=== PATIENT | male | born 1970 | race Caucasian/White ===

== ENCOUNTER 2016-05-13 17:08 | Emergency (ER) | payer MEDICAID ==
[2016-05-13 17:27] VITALS: BP 96/44; PULSE 58; RESP 15; TEMP 97.9; O2SAT 93
--- NOTE | 2016-05-13 18:16 | UCPHY ---
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 He is able to usually reduce this himself. No nausea or vomiting. Bowel movements normal. No urinary complaints. No direct trauma. No saddle injury. PHYSICAL EXAM (Prior to examination, patient consented to physical exam, hands were washed and my usual and customary physical exam procedures followed) 1) GENERAL: Well-developed, well-nourished, alert and oriented. Appears to be in no acute distress. 2) HEAD: Normocephalic 3) HEENT: sclera anicteric 4) LUNGS: Breathing comfortably. [5) : Circumcised male. bilateral testicles nontender with positive cremasteric reflex with no mass. A right inguinal mass consistent with an inguinal hernia is appreciated. I am able to easily reduce this area and instructed the patient how to do so as well (Yoli Birch) Constitutional: Initial Vital Signs Temperature (C) 36.6 C 05/13/16 17:23 Heart Rate 58 L 05/13/16 17:23 Respiratory Rate 15 05/13/16 17:23 Blood Pressure 96/44 L 05/13/16 17:23 O2 Sat (%) 93 05/13/16 17:23 O2 Delivery Mode Room Air Allergies/Adverse Reactions: erythromycin base [Erythromycin Base] Allergy (Intermediate, Verified 02/25/15 11:41) Sulfa (Sulfonamide Antibiotics) Allergy (Intermediate, Verified 02/25/15 11:41) ANESTHETICS Allergy (Uncoded 02/25/15 11:41) Home Medications: Medication Instructions Recorded Medical Marijuana 11/17/10 Lipitor 02/15/15 Plavix 02/15/15 Aspirin 81mg (OTC) 02/25/15 Ranexa 04/02/16 Hydrocodone/APAP 5/325 [[place] 1 tab PO Q6 PRN #15 tab 05/13/16 5/325 (RX)] MDM/Departure - MDM ED Course/Re-evaluation: I was able to easily reduce his right inguinal hernia and instructed the patient how to do so as well. Instructed him the importance of follow-up with General surgery in the importance of follow-up the emergency department immediately if he is unable to reduce this area himself or if he develops fever , chills, nausea, vomiting, worsening pain. He feels comfortable with this plan. Also instructed on wearing briefs and analgesia prescription provided. ( Yoli Birch) The patient was evaluated and managed by the Physician Outsewer/ Nurse Practitioner. I discussed the patient's presentation and course with the midlevel provider with them and agree with the evaluation. My co-signature indicates that I have reviewed this chart and I agree with the findings and plan of care as documented. I am the secondary supervising physician. (Patt Velarde) - Depart Disposition: Home, Routine, Self-Care Clinical Impression: Right inguinal hernia Condition: Good Instructions: Inguinal Hernia (ED) Additional Instructions: If you are unable to push the hernia back in go to the emergency department immediately. Stand Alone Forms: Work Limited Duty Prescriptions: Hydrocodone/APAP 5/325 [[place] 5/325 (RX)] 1 tab PO Q6 PRN #15 tab PRN Reason: Pain, Severe Referrals: Mitch Marie MD [Primary Care Provider] - 1-2 days without fail Jennifer Chakraborty MD [Medical Doctor] - 1-2 days without fail (Dr. Jennifer Chakraborty is a general surgeon) - PQRS PQRS Measurement: n/a (Yoli Birch)
== END 2016-05-13 18:24 | disposition home or self-care (01) ==
LOC: CED 17:08
DX: K40.90 Unilateral inguinal hernia, without obstruction or gangrene, not specified as recurrent (principal)
CPT/HCPCS: 99214-PO; G0463-PO

== ENCOUNTER 2017-05-20 11:30 | Inpatient (IN) | payer MEDICAID ==
[2017-05-20] MEDS ORDERED: IPRATROPIUM/ALBUTEROL 3 ML DEYVIAL IH ONE (11:40)
[2017-05-20] MEDS ORDERED: ASPIRIN 81 MG CHEWABLE TAB PO ONE (11:48)
[2017-05-20] MEDS ORDERED: NS 500 ML IV ONE ×2 (11:48→12:36)
--- NOTE | 2017-05-20 12:05 | CPEKG ---
Heart Rate: 62 RR Interval: 968 P-R Interval: 140 QRSD Interval: 82 QT Interval: 428 QTC Interval: 435 P [place]: -20 QRS [place]: 104 T Wave [place]: 63 EKG Severity - ABNORMAL ECG - EKG Impression: SINUS RHYTHM EKG Impression: ANTERIOR INFARCT, AGE INDETERMINATE Electronically Signed By: Nicole Alvarenga 20-May-2017 12:38:18
--- NOTE | 2017-05-20 12:07 | EDPHY ---
H & P Time Seen by Provider: 05/20/17 11:39 HPI/ROS: HPI Chest tightness, cough, congestion. 47-year-old male by private vehicle. He has a history of coronary artery disease. History of [place] with 1 stent placed. Noncompliant with his medications. He reports that he has had a cough productive of a clear to whitish sputum for the last 1-2 weeks with associated nasal and upper airway congestion. He reports that for the last 3 days he has had tightness left lower chest radiating around to the left thorax. Describes this as a tight, burning sensation that is sometimes sharp and intermittent in intensity but more constant at a low level. He took a nitroglycerin today. He did not have any relief. This is what prompted him to come to the emergency department for evaluation. ROS: Constitutional: No fever, no chills. No weakness. Eyes: No discharge. No changes in vision. ENT: No sore throat. As above. Respiratory: As above. Cardiac: As above, no palpitations. Gastrointestinal: No abdominal pain, no vomiting, no diarrhea. Genitourinary: No hematuria. No dysuria or increased frequency with urination. Musculoskeletal: No back pain. No neck pain. No myalgias or arthralgias. Skin: No rashes. Neurological: No headache. No focal weakness or altered sensation. Past medical history: Coronary artery disease. He does not know the name of his structural engineer. He has not seen his structural engineer in some time. He is currently not taking any prescription medications except for a albuterol inhaler which he uses sporadically. He also has a history of inguinal hernias as well as schizophrenia, bipolar and antisocial personality disorder. Social history: Smokes both cigarettes and marijuana. Here with a friend. Denies alcohol. Physical Exam: General Appearance: Alert, no distress. He is thin in appearance. This patient is responding to questions appropriately and in full sentences. Generally well hydrated. Eyes: Pupils equal and round no pallor or injection. No lid edema, erythema or injection. ENT, Mouth: Mucous membranes are moist. The pharyngeal tissues are unremarkable. No edema or swelling. No asymmetry suggestive of abscess. No erythema or exudates. Respiratory: There are no retractions, lungs are clear to auscultation except for some scant wheezing midlung vann with good air movement bilaterally. No tachypnea. Cardiovascular: Regular rate and rhythm. No murmur appreciated. Gastrointestinal: Abdomen is soft and nontender, no masses, bowel sounds normal. No focal tenderness at McBurney's point. No Lin sign. Neurological: Motor sensory function is grossly intact. Cranial nerves are normal. Gait is normal. Skin: Warm and dry, no rashes. Musculoskeletal: Neck is supple and nontender. Extremities are symmetrical. All joints range without pain or impingement. Psychiatric: No agitation. No depression. Database: EKG: EKG time is 12:02 p.m.; EKG shows a narrow complex normal sinus rhythm with a ventricular rate of 62. The OK, QRS, QT intervals are within normal limits. QS waves are noted in the anterior precordial leads. Biphasic T-waves in V4 and V5. No evidence of right heart strain. Interpreted by me. This EKG was compared to a prior study from March of 2016. Biphasic T-wave inversions in V4 and V5 not present on that study. Imaging: Chest x-ray PA and lateral; the cardiac mediastinal silhouette is unremarkable. COPD changes. No evidence of infiltrate or pneumothorax. No acute cardiopulmonary disease process noted. Interpreted by me. Procedures: Emergency department course: IV placed. He was placed on a monitor. His vital signs were reviewed. He was given 324 mg of chewed aspirin. He will be given a 1 time trial of L2 ureteral/ Atrovent. EKG obtained and reviewed by myself. 12:30 p.m., patient re-evaluated. States that his breathing is a bit easier after albuterol/Atrovent. Repeat pulmonary exam is unchanged from above. Describes having low level underlying chest discomfort on the left side. Describes discomfort as a pressure sensation. 1:15 p.m., patient resting comfortably. Still reports having a low level of left-sided chest discomfort. Blood pressure is been in the 90s over 50s. Blood work and results of chest x-ray and EKG reviewed with the patient. His ex - who was formally with him in the room is no longer present. I discussed admission for further evaluation to the hospital. He consents. Hospitalist paged. 1:25 p.m., spoke with hospitalist. Patient accepted for admission to telemetry observation under the care of Dr. Guthrie. Patient will be transferred by ambulance. His remaining emergency department course under my care has been uneventful. He was transferred in stable condition. Differential Diagnosis: The differential diagnosis on this patient includes but is not limited to bronchitis, influenza, pulmonary embolism, acute coronary syndrome. This represents a partial list of diagnoses considered. These considerations are based on history, physical exam, past history, reassessment and diagnostic testing. Smoking Status: Heavy smoker Constitutional: Initial Vital Signs Temperature (C) 36.9 C 05/20/17 11:39 Heart Rate 61 05/20/17 11:39 Respiratory Rate 18 05/20/17 11:39 Blood Pressure 112/61 05/20/17 11:39 O2 Sat (%) 96 05/20/17 11:39 O2 Delivery Mode Room Air O2 (L/minute) 2 Allergies/Adverse Reactions: erythromycin base [Erythromycin Base] Allergy (Intermediate, Verified 05/20/17 11:45) Sulfa (Sulfonamide Antibiotics) Allergy (Intermediate, Verified 05/20/17 11:45) ANESTHETICS Allergy (Uncoded 05/20/17 11:45) Home Medications: Medication Instructions Recorded Medical Marijuana 11/17/10 Lipitor 02/15/15 Plavix 02/15/15 Aspirin 81mg (OTC) 02/25/15 Ranexa 04/02/16 Hydrocodone/APAP 5/325 [[place] 1 tab PO Q6 PRN #15 tab 05/13/16 5/325 (RX)] Medical Decision Making - Diagnostics Imaging Results: Imaging Impressions Chest X-Ray 05/20/17 11:40 Impression: Lung hyperinflation, with no focal infiltrate. - Data Points Laboratory Results: Laboratory Results 05/20/17 12:30 05/20/17 12:30 05/20/17 05/20/17 05/20/17 12:30 12:30 12:30 WBC 7.74 10^3/uL 10^3/uL (3.80-9.50) RBC 4.89 10^6/uL 10^6/uL (4.40-6.38) Hgb 15.7 g/dL g/dL (13.7-17.5) Hct 44.2 % % (40.0-51.0) MCV 90.4 fL fL (81.5-99.8) MCH 32.1 pg pg (27.9-34.1) MCHC 35.5 g/dL g/dL (32.4-36.7) RDW 12.6 % % (11.5-15.2) Plt Count 283 10^3/uL 10^3/uL (150-400) MPV 8.8 fL fL (8.7-11.7) Neut % (Auto) 69.9 % % (39.3-74.2) Lymph % (Auto) 20.7 % % (15.0-45.0) Irion % (Auto) 6.6 % % (4.5-13.0) Eos % (Auto) 1.7 % % (0.6-7.6) Baso % (Auto) 0.8 % % (0.3-1.7) Nucleat RBC Rel Count 0.0 % % (0.0-0.2) Absolute Neuts (auto) 5.42 10^3/uL 10^3/uL (1.70-6.50) Absolute Lymphs (auto) 1.60 10^3/uL 10^3/uL (1.00-3.00) Absolute Monos (auto) 0.51 10^3/uL 10^3/uL (0.30-0.80) Absolute Eos (auto) 0.13 10^3/uL 10^3/uL (0.03-0.40) Absolute Basos (auto) 0.06 10^3/uL 10^3/uL (0.02-0.10) Absolute Nucleated RBC 0.00 10^3/uL 10^3/uL (0-0.01) Immature Gran % 0.3 % % (0.0-1.1) Immature Gran # 0.02 10^3/uL 10^3/uL (0.00-0.10) PT 13.1 SEC SEC (12.0-15.0) INR 1.00 (0.83-1.16) APTT 40.4 SEC H SEC (23.0-38.0) D-Dimer < 0.27 ug/mLFEU ug/mLFEU (0.00-0.50) Sodium 143 mEq/L mEq/L (134-144) Potassium 3.7 mEq/L mEq/L (3.5-5.2) Chloride 101 mEq/L mEq/L (97-110) Carbon Dioxide 20 mEq/l L mEq/l (22-31) Anion Gap 22 mEq/L H mEq/L (8-16) BUN 7 mg/dL mg/dL (7-23) Creatinine 0.8 mg/dL mg/dL (0.7-1.3) Estimated GFR > 60 Glucose 100 mg/dL mg/dL (70-100) Calcium 9.7 mg/dL mg/dL (8.5-10.4) Creatine Kinase 76 IU/L IU/L (0-224) CK-MB (CK-2) Fraction 0.88 ng/mL ng/mL (0.00-4.55) Troponin I < 0.012 ng/mL ng/mL (0.000-0.034) NT-Pro-B Natriuret Pep 320 pg/mL H pg/mL (0-125) Medications Given: Discontinued Medications Albuterol/Ipratropium (Duoneb) 6 ml IH EDNOW ONE Stop: 05/20/17 11:41 Last Admin: 05/20/17 12:06 Dose: 6 ml Aspirin (Aspirin) 324 mg PO EDNOW ONE Stop: 05/20/17 11:49 Last Admin: 05/20/17 12:03 Dose: 324 mg Sodium Chloride (Ns) 500 mls @ 0 mls/hr IV EDNOW ONE; Wide Open PRN Reason: Protocol Stop: 05/20/17 12:37 Last Admin: 05/20/17 12:38 Dose: 500 mls Departure - Departure Disposition: [facility] ([place], [place]) Inpatient Acute Clinical Impression: Chest pain, Acute bronchitis Referrals: [facility],. [Primary Care Provider] - As per Instructions
[2017-05-20 12:41] LABS: PLATELET COUNT 283 10^3/uL (150-400)
[2017-05-20 12:51] LABS: PROTIME(PATIENT) 13.1 SEC (12.0-15.0)
[2017-05-20 13:01] LABS: CREATINE KINASE 76 IU/L (0-224)
[2017-05-20] MEDS ORDERED: ACETAMINOPHEN 325 MG TAB PO PRN (16:42)
[2017-05-20] MEDS ORDERED: ONDANSETRON 4 MG/2 ML VIAL IVP PRN (16:42)
[2017-05-20] MEDS ORDERED: ONDANSETRON DISINTEGRATING 4 MG TAB PO PRN (16:42)
--- NOTE | 2017-05-20 17:17 | GHP ---
[f rep st] HISTORY AND PHYSICAL DATE OF ADMISSION: 05/20/2017 CHIEF COMPLAINT: Chest pain. HISTORY OF PRESENT ILLNESS: This is a 47-year-old male with a previous history of acute NM, status p ost stent done at [facility] several years ago. He did follow up with Cardiology last summer. Taylor de anda does not remember when his last stress test was. He has been having upper respiratory tract infection for some time. A couple days ago, he started [employer] [id number] cold medicine. The next day he woke up and he had chest pressure that continue d throughout the day. He did not feel well overall. No dyspnea, diaphoresis. Pain is mostly gone n ow. It is slightly pleuritic. REVIEW OF SYSTEMS: A 10-point review of systems was obtained and negative. PAST MEDICAL HISTORY: 1. Coronary artery disease, status post stenting. 2. Bipolar. SOCIAL HISTORY: He had quit smoking but now is smoking. He has been smoking about 6 months. He sta rajiv that he is not eating well overall. He used to do methamphetamine until 2008 and had a very bad experience and has not touched it since. FAMILY HISTORY: No history of heart disease. PHYSICAL EXAM: VITAL SIGNS: Afebrile, blood pressure is 96/58, heart rate 50, oxygen saturation 99% on 2 L. GENERAL: The patient is well developed, no apparent distress. HEENT: Nonicteric sclerae. Extraocular movements intact. Moist mucous membranes. NECK: Supple. No thyromegaly. LUNGS: Go od effort. Clear to auscultation bilaterally. CARDIOVASCULAR: Regular rate and rhythm. No murmurs or gallops. ABDOMEN: Positive bowel sounds. Soft, nontender, nondistended. No hepatosplenomegaly . EXTREMITIES: No clubbing, cyanosis, or edema. SKIN: Without rash. Dry, intact. NEUROLOGIC: A lert and oriented x3. Moving all 4 extremities equally. PSYCH: Normal mood and affect. LABS: CBC is normal. Coags showed a negative D-dimer. Troponin is negative. Flu is negative. EKG personally reviewed and interpreted. Shows Q-waves anteriorly. Some ST-segment elevation in V3 and V4 but looks like possibly repolarization. Chest x-ray personally reviewed and interpreted, negativ e. ASSESSMENT: This is a 47-year-old male with a previous history of coronary artery disease presenting with chest pain. PLAN: 1. Chest pain. Rule out ACS. We will cycle troponins. He has not had a stress test in a while. W e will get a treadmill nuclear medicine test in the morning. Continue aspirin. 2. Bipolar. /[id number]/MODL
[2017-05-20] MEDS: OLANZapine 5 MG TAB PO SCH (20:53)
--- NOTE | 2017-05-21 01:41 | CPEKG ---
Heart Rate: 47 RR Interval: 1277 P-R Interval: 154 QRSD Interval: 80 QT Interval: 516 QTC Interval: 457 P [place]: 55 QRS [place]: 87 T Wave [place]: 57 EKG Severity - ABNORMAL ECG - EKG Impression: SINUS BRADYCARDIA EKG Impression: ANTERIOR INFARCT, AGE INDETERMINATE Electronically Signed By: Nishnat Matt 21-May-2017 06:41:36
[2017-05-21] MEDS: ASPIRIN EC 81 MG TAB PO SCH (08:02)
--- NOTE | 2017-05-21 13:17 | HOSPPROG ---
Hospitalist Progress Note Assessment/Plan: 47 yo M w known CAD here w CP, anterolateral wkg changes and markedly abnormal resting nuclear images. cad: cath today trop neg suggesting event about a week ago h/o lower extremity "clots": has been told hes had clots but never anticoagulated check b/l ultrasound tobacco use: rec cessation dispo: change to inpatient Subjective: ekg w anterolat twi w ST changes (interp by me). case d/w selwyn ramos, cardiology PA Objective: Vital Signs Temp Pulse Resp BP Pulse Ox 36.8 C 50 L 17 95/56 L 95 05/21/17 12:00 05/21/17 12:00 05/21/17 12:00 05/21/17 12:00 05/21/17 12:00 05/20/17 05/21/17 05/22/17 05:59 05:59 05:59 Intake Total 620 Balance 620 PT 13.1 SEC (12.0-15.0) 05/20/17 12:30 INR 1.00 (0.83-1.16) 05/20/17 12:30 - Physical Exam Constitutional: no apparent distress, appears nourished Eyes: PERRL, anicteric sclera Ears, Nose, Mouth, Throat: moist mucous membranes, hearing normal Cardiovascular: regular rate and rhythym, no murmur, rub, or gallop Respiratory: no respiratory distress, no rales or rhonchi Gastrointestinal: normoactive bowel sounds, soft, non-tender abdomen Genitourinary: no bladder fullness, No huitron in urethra Skin: warm, normal color Musculoskeletal: full muscle strength, no muscle tenderness Neurologic: AAOx3, sensation intact bilaterally Psychiatric: interacting appropriately, not anxious Lymph, Heme, Immunologic: no cervical LAD, no supraclavicular LAD ICD10 Worksheet Patient Problems: Problems Problem Status Onset Acute bronchitis Acute Chest pain Acute
[2017-05-21] MEDS ORDERED: DIAZEPAM 5 MG TAB PO ONE (14:16)
[2017-05-21] MEDS ORDERED: FAMOTIDINE 20 MG TAB PO ONE (14:16)
[2017-05-21] MEDS ORDERED: ASPIRIN EC 325 MG TAB PO ONE (14:16)
[2017-05-21] MEDS ORDERED: TEMAZEPAM 15 MG CAP PO PRN (14:16)
[2017-05-21] MEDS ORDERED: diphenhydrAMINE 25 MG CAP PO ONE (14:16)
[2017-05-21] MEDS ORDERED: NITROGLYCERIN 0.4 MG BTL SL PRN (14:16)
[2017-05-21] MEDS ORDERED: NS 1,000 ML IV SCH (14:30)
[2017-05-21] MEDS ORDERED: IOPAMIDOL (ISOVUE-370) 150 ML BTL IV ONE (14:51)
[2017-05-21] MEDS ORDERED: LIDOCAINE 1% 300 MG/30 ML SDV ONE (14:51)
[2017-05-21] MEDS ORDERED: MIDAZOLAM 2 MG/2 ML VIAL ONE (14:51)
[2017-05-21] MEDS ORDERED: fentaNYL 100 MCG/2 ML INJ ONE (14:51)
--- NOTE | 2017-05-21 15:01 | GCON ---
[f rep st] CONSULTATION CARDIOLOGY CONSULTATION DATE OF CONSULTATION: 05/21/2017 REASON FOR CONSULTATION: We were asked by Dr. Clarence Ramos of [facility] to evaluate this p atient for his episode of chest discomfort and abnormal ECG. HISTORY OF PRESENT ILLNESS: The patient is a 47-year-old male with a history of previous NE on 2015. He reports he was seen at [facility] and treated with percutaneous intervent ion to his left anterior descending; we do not have records to confirm this. He reports a midsternal chest discomfort described as a tightness that precipitated current admission. He had noted an epis ode 2 days prior to admission while he was walking his ex- to work. He did take a nitroglycerin which alleviated his discomfort. Yesterday, he had ongoing discomfort and presented for further eval uation. He reports symptoms were alleviated by a breathing treatment. He reports he has had a respi ratory infection for the past few weeks, described as mostly coughing. He denies any PND, orthopnea, palpitations, presyncope, syncope, or any recent GI illness. REVIEW OF SYSTEMS: As per HPI. A complete 10-point review of systems was obtained and is negative e xcept for what is dictated. PAST MEDICAL HISTORY: 1. CAD, status post NE with PTCA and stenting 12/12/2015. 2. Bipolar disorder. 3. Tobacco abuse, having recently resumed smoking. 4. 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 SOCIAL HISTORY: Patient is a current tobacco user. He also reports smoking marijuana. No alcohol u se is noted in his chart. FAMILY HISTORY: Negative for coronary disease. OUTPATIENT MEDICATIONS: Listed as aspirin and Zyprexa. ALLERGIES: Sulfonamides, anesthetics, and erythromycin. PHYSICAL EXAMINATION: VITAL SIGNS: BP of 95/56, heart rate of 50, respirations 17, O2 saturation 95 % in room air, and a temp of 98.3 degrees Fahrenheit. GENERAL: He is a pleasant male in no apparent distress. HEENT: Normocephalic atraumatic. Eyes are without scleral icterus. Mouth with poor den tition. NECK: Supple with no JVD. No carotid bruits. HEART: Regular rate and rhythm with a 2/6 s ystolic ejection murmur. LUNGS: Rhonchorous without rales present. ABDOMEN: Soft with normoactive bowel sounds. : No Weber present in urethra. SKIN: Warm and dry without clubbing, cyanosis, or edema. DIAGNOSTICS: A 05/20/2017 chest x-ray shows lung hyperventilation without infiltrate. A 05/20/2017 12-lead ECG, personally interpreted, demonstrates sinus rhythm with an ectopic atrial rhythm also pre sent. There are anterior Q-waves. There are biphasic T-waves in V4 and T-wave inversion in V5. 02/2018 EKG (today) demonstrates sinus rhythm with worsening biphasic T-waves and T-wave inversions t hroughout the anterolateral leads. Ectopic atrial rhythm is also present. A 05/21/2017 resting nucl ear medicine scan shows defects involving the apical, anteroapical, and septal kwong. I discussed th is case with Dr. Clarence Ramos. IMPRESSION AND PLAN: The patient is a 47-year-old male who presents with chest pain. 1. New onset chest pain and very abnormal EKG suggestive of recent myocardial infarction. Options w ere reviewed with him today, and he is advised to consider cardiac catheterization for further evalua tion. He is agreeable to this. Risks, benefits, and alternatives reviewed with him today. 2. Tobacco abuse. Patient counseled on cessation. 3. Dyslipidemia. He reports he has been off statin as his previous hand edger canceled his prescr iption. We will recheck his lipids now and likely he may be put back on statin therapy. More recommendations to follow further results of cardiac catheterization. /[id number]/MODL
--- NOTE | 2017-05-21 15:10 | PDMN ---
Medical Necessity Medical necessity: abnormal EKG, ab. resting nuclear images. cont monitoring and eval > 2 midnights
--- NOTE | 2017-05-21 15:17 | ASMTCASEMG ---
Living Arrangements What is your living Answers: With Spouse arrangement? Who do you live with? Type Of Residence What kind of residence do Answers: House you live in? Discharge Plan Comments Coordination Status Comments Notes: Pt is a 47 y/o man admitted for chest pain and hx of coronary artery disease. Pt will most likely not have any needs at time of d/c. No therapies ordered at this time. CM available for d/c needs. Plan: Independent Date Signed: 05/21/2017 03:16 PM Electronically Signed By:TAE Hernández
--- NOTE | 2017-05-21 15:25 | PDHPUP ---
History & Physical Update H&P update statement: This history and physical update is based on an assessment of the patient which was completed after admission or registration (within 24 hours), but prior to the surgery/procedure. H&P update: H&P reviewed & patient examined, no change in patient's condition since H&P completed
--- NOTE | 2017-05-21 15:25 | PDPROPOC ---
Sedation Plan of Care Sedation Plan of Care: vital signs stable, mental status noted, patient educated of risks, benefits, alternatives, patient can tolerate sedation ASA Classification: ASA 2 Planned drugs: fentanyl, midazolam Mallampati Score: Class 1 Mallampati Reference Image: Patient passed 3-3-2 rule?: Yes
--- NOTE | 2017-05-21 16:18 | PDDXCAT ---
Diagnostic Cath Note - . Date: 05/21/17 Traffic Incident Management Manager: Joslyn High-risk criteria on non-invasive testing: stress-induced moderate-size multiple perfusion defects - Procedure Access: right groin Procedure: left heart catheterization, coronary angiography, left ventriculogram - Materials Left Heart Cath size: 6F Left Heart Cath materials: standard multipack (JL4, JR4, pigtail) - Findings-Left Heart Catheterization LM: Short, bifurcating into the LAD and LCX vessels. Vast majority of the diameter of the LM transfers into the LAD. No luminal irregularities were noted. LAD: Large vessel with widely patent LAD stent. One principal diagonal. Mild luminal irregularities to the bifurcation of the LAD/Diag. LCX: Non dominant, small vessel with one principal diagonal. No appreciable luminal irregularities were noted. RCA: Medium diameter vessel without luminal irregularities noted. PDA and CELSA are supplied by this vessel (dominant). EDP: 14 mm Hg LVEF: 50% Wall motion: anteroapical hypokinesis was noted Complications: none Estimated blood loss: <50ml Closure method: manual pressure Assessment: 47 y/o male with history of PCI to the LAD and complaints of chest pains as well as an abnormal MPI test. No cardiac enzyme elevation was noted. No sigificant CAD was noted. LAD stent was widely patent. Plan: Aggressive medical management Strong recommendations for smoking cessation Alcohol cessation Intervention: none Patient Problems: Problems Problem Status Onset Acute bronchitis Acute Chest pain Acute
[2017-05-21] MEDS ORDERED: ATROPINE SULFATE 1 MG/10 ML SYR ONE (16:26)
--- NOTE | 2017-05-21 16:36 | ECHO ---
[email or web address] [place] [id number] Main: [phone] Fax: Transthoracic Echocardiogram Name: MITCH MOREL MR#: [id number] Study Date: 05/21/2017 Study Time: 11:49 AM Date of : 1970 Age: 47 year(s) Height: 165.1 cm (65 in.) Weight: 54.43 kg (120 lb.) BSA: 1.59 m2 Gender: Male Examination: Echo Indication: Abnormal EKG/R/O WMA Image Quality: Contrast: Requested by: Manisha Lomax BP: 92 mmHg/50 mmHg Heart Rate: Rhythm: Indication: Abnormal EKG/R/O WMA Procedure Staff Yeast Cake Cutter: Leann Lamar Reading Physician: Schuyler Jorgensen Requesting Provider: Conclusions: Normal size left ventricle. No LV hypertrophy. The ejection fraction is estimated to be 45-50 %. LV mid inferoseptal and entire apical region is akinetic.. Mild mitral valve regurgitation is present. The aortic valve is normal in appearance and function. Trivial to mild tricuspid valve regurgitation. Pulmonary valve not well visualized. Measurements: Chambers Valvular Assessment AV/MV Valvular Assessment TV/PV Normal Normal Normal Name Value Range Name Value Range Name Value Range EF Range: 45-50 % Continued Measurements: Findings: Left Ventricle: Normal size left ventricle. No LV hypertrophy. The ejection fraction is estimated to be 45-50 %. LV mid inferoseptal and entire apical region is akinetic.. Right Ventricle: Normal size right ventricle. Left Atrium: The left atrium is normal in size. Right Atrium: The right atrium is normal in size. Mitral Valve: Patient: MITCH MOREL Study Date: 05/21/2017 Page 1 of 2 11:49 AM The mitral valve is normal in appearance and function. Mild mitral valve regurgitation is present. Aortic Valve: The aortic valve is normal in appearance and function. Tricuspid Valve: The tricuspid valve is normal in appearance and function. Trivial to mild tricuspid valve regurgitation. Pulmonic Valve: Pulmonary valve not well visualized. Aorta: The aorta is normal. Pericardium: Trivial anterior pericardial effusion. (No Signature Object) Patient: MITCH MOREL Study Date: 05/21/2017 Page 2 of 2 11:49 AM [id number]
[2017-05-21] MEDS: OLANZapine 5 MG TAB PO SCH (22:32)
[2017-05-21 23:44] VITALS: RESP 16
[2017-05-22 04:10] VITALS: O2SAT 96
[2017-05-22 08:02] VITALS: BP 106/57; PULSE 56; TEMP 98.3
[2017-05-22] MEDS: ASPIRIN EC 81 MG TAB PO SCH (08:46)
--- NOTE | 2017-05-22 09:11 | HOSPPROG ---
Hospitalist Progress Note Assessment/Plan: 47 yo M w known CAD here w CP, anterolateral wkg changes and markedly abnormal resting nuclear images. cad: cath unremarkable add statin h/o lower extremity "clots": has been told hes had clots but never anticoagulated neg b/l ultrasound tobacco use: rec cessation dispo: home today > 30 minutes see dc summary Subjective: cath w patent stent, non flow limiting CAD elsewhere Objective: Vital Signs Temp Pulse Resp BP Pulse Ox 36.8 C 56 L 16 106/57 L 96 05/22/17 08:00 05/22/17 08:00 05/22/17 08:00 05/22/17 08:00 05/22/17 08:00 05/21/17 05/22/17 05/23/17 05:59 05:59 05:59 Intake Total 1400 Output Total 700 Balance 700 PT 13.1 SEC (12.0-15.0) 05/20/17 12:30 INR 1.00 (0.83-1.16) 05/20/17 12:30 - Physical Exam Constitutional: no apparent distress, appears nourished, not in pain Eyes: PERRL, anicteric sclera Ears, Nose, Mouth, Throat: hearing normal, poor dentition, other Cardiovascular: regular rate and rhythym, no murmur, rub, or gallop, No systolic murmur Respiratory: no respiratory distress, no rales or rhonchi Gastrointestinal: normoactive bowel sounds, soft, non-tender abdomen Genitourinary: no bladder fullness, No huitron in urethra Skin: warm, normal color Musculoskeletal: full muscle strength, no muscle tenderness Neurologic: AAOx3 Psychiatric: interacting appropriately ICD10 Worksheet Patient Problems: Problems Problem Status Onset Acute bronchitis Acute Chest pain Acute
--- NOTE | 2017-05-22 11:18 | GHP ---
[f rep st] HISTORY AND PHYSICAL DATE OF ADMISSION: 05/21/2017 DICTATION ENDS. CANCEL. /[id number]/MODL
--- NOTE | 2017-05-22 14:36 | ASDISCHSUM ---
Discharge Information Plan Status:Home with No Needs Medically Cleared to Leave:05/21/2017 Discharge Date:05/22/2017 01:55 PM CM D/C Disposition: ADT D/C Disposition:Home, Routine, Self-Care Projected Discharge Date:05/22/2017 12:00 AM Transportation at D/C: Discharge Delay Reason: Follow-Up Date:05/22/2017 12:00 AM Discharge Slot: Final Diagnosis: Placement Information Patient Contact Information Contact Name:CLAUDIA Relationship: Address: Work Phone: City: [facility] Phone: State/[employer] Code: Email: Financial Information Financial Class:Self-Pay Primary Plan Desc:SELF PAY Primary Plan Number: Secondary Plan Desc: Secondary Plan Number: Assessment Information [facility] Initial CM Assessment Living Arrangements What is your living Answers: With Spouse arrangement? Who do you live with? Type Of Residence What kind of residence do Answers: House you live in? Discharge Plan Comments Coordination Status Comments Notes: Pt is a 47 y/o man admitted for chest pain and hx of coronary artery disease. Pt will most likely not have any needs at time of d/c. No therapies ordered at this time. CM available for d/c needs. Plan: Independent Date Signed: 05/21/2017 03:16 PM Electronically Signed By:TAE Hernández Case Management Discharge Plan Note Case Management Discharge Discharge Order Complete? Answers: Yes Patient to Obtain Answers: Independently Medications Transportation Arranged Answers: Family/Friends EMTALA Complete Answers: No Case Management Transport Answers: No Form Complete Faxed Final Orders Answers: No Agency/Facility Transfer Answers: No Report Printed & Faxed to Receiving Agency Family Notified Answers: No Discharge Comments Notes: Pt is being discharged today. Pt reports that his is coming to pick him up. CM spoke to pt about his psycho-social stressors and ETOH use. CM provided a list of AA meetings, rooms for rent and ETOH relapse prevention programs. Pt will d/c without any needs. CM available for changes. Plan: Independent Date Signed: 05/22/2017 10:28 AM Electronically Signed By:TAE Hernández Intervention Information
--- NOTE | 2017-05-22 20:46 | GDS ---
[f rep st] DISCHARGE SUMMARY DISCHARGE DIAGNOSES: 1. Coronary artery disease with known left anterior descending artery stent. 2. False-positive nuclear perfusion test. HOSPITAL COURSE: Please see admission history and physical by Dr. Roni Guthrie. The patient presented with chest pain. He had abnormal EKG with anterolateral biphasic T-waves. He had some rest images of nuclear perfusion that showed defects involving the anterior, apical and septal kwong. He had neg ative troponins. He underwent cardiac catheterization, which showed a patent stent and relatively un remarkable coronary artery disease. He was re-initiated on statin. He does take an aspirin. The st ent was more than a year ago, so he does not take Plavix. /[id number]/MODL
== END 2017-05-22 13:55 | disposition home or self-care (01) | DRG 287 ==
LOC: CED 11:30 → CEDHOLD 13:23 → F2W 15:24 → OBSVTOIN 05-21 13:22
PROVIDERS: ADMIT Internal Medicine; ATTEND Internal Medicine
DX: I25.10 Atherosclerotic heart disease of native coronary artery without angina pectoris (principal); F12.90 Cannabis use, unspecified, uncomplicated; I25.2 Old myocardial infarction; F31.9 Bipolar disorder, unspecified; E78.5 Hyperlipidemia, unspecified; Z72.0 Tobacco use; Z95.5 Presence of coronary angioplasty implant and graft
CPT/HCPCS: 71046-PO; 80048-PO; 82550-PO; 82553-PO; 83880-PO; 84484-PO; 85025-PO; 85378-PO; 85610-PO; 85730-PO; 87400-PO; A9500; G0378; J0461; J1644; J2250; J3010; Q9967

== ENCOUNTER 2017-09-07 12:10 | Emergency (ER) | payer MEDICAID ==
[2017-09-07] MEDS ORDERED: NS 1,000 ML IV ONE ×2 (12:30→12:57)
--- NOTE | 2017-09-07 12:38 | EDPHY ---
H & P Time Seen by Provider: 09/07/17 12:12 HPI/ROS: 47-year-old male with a history of cannabis abuse and alcohol abuse presents complaining of vomiting and diarrhea For the last 3 days. No fevers or chills. He states he ate a hamburger yesterday, followed by "urping". Patient admits he may have had a large bottle of wine as well as a "[employer] reserve". He also did several bowls of weed yesterday and today. Review of systems As per HPI General no fever no chills no weakness HEENT no eye pain no eye discharge. No eye redness, no sore throat Respiratory no cough, no shortness of breath Cardiac no chest pain, no peripheral edema GI pos abdominal cramping, positive nausea positive vomiting positive diarrhea no constipation no flank pain, no hematuria, no dysuria Musculoskeletal no myalgias, no joint pain Heme no easy bruising, no easy bleeding Endo no polyuria, no polydipsia Skin no rashes, no pruritus Neuro no syncope, no dizziness, no headaches Psych is no suicidal ideation, no homicidal ideation Past Medical/Surgical History: Coronary artery disease, with 1 stent Hyperlipidemia COPD/asthma Alcohol abuse Cannabis abuse Social History: Uses cannabis and alcohol on a regular basis Smoking Status: Heavy smoker Physical Exam: 47-year-old male alert and oriented no acute distress nontoxic appearance, afebrile Thin, Atraumatic normocephalic Extraocular muscles intact, anicteric 0 P poor dentition, dry mucosa, no erythema no exudate Neck supple no JVD , no meningismus Lungs clear to auscultation bilaterally, no respiratory distress Heart regular rate and rhythm without murmur rub or gallop Abdomen nondistended bowel sounds present soft nontender no guarding no rebound , no pulsatile mass Extremities no cyanosis clubbing or edema Neuro alert and oriented no focal deficits Gait intact Constitutional: Initial Vital Signs Temperature (C) 36.9 C 09/07/17 12:17 Heart Rate 86 09/07/17 12:17 Respiratory Rate 16 09/07/17 12:17 Blood Pressure 108/59 L 09/07/17 12:17 O2 Sat (%) 95 09/07/17 12:17 O2 Delivery Mode Room Air Allergies/Adverse Reactions: erythromycin base [Erythromycin Base] Allergy (Intermediate, Verified 09/07/17 12:28) Sulfa (Sulfonamide Antibiotics) Allergy (Intermediate, Verified 09/07/17 12:28) ANESTHETICS Allergy (Uncoded 09/07/17 12:28) Home Medications: Medication Instructions Recorded Aspirin EC [Aspirin EC 81 mg (*)] 81 mg PO DAILY 05/20/17 OLANZapine [Zyprexa] 5 mg PO HS 05/20/17 Atorvastatin Calcium 10 mg PO HS #30 tablet 05/22/17 Advair 250/50 (*) 09/07/17 Albuterol 09/07/17 Qvar 09/07/17 Medical Decision Making ED Course/Re-evaluation: Patient seen and evaluated for vomiting, diarrhea, crampy abdominal pain. IV established, IV fluids started as well as ondansetron 4 mg IV push Lab sent CBC within normal limits CMP within normal limits Lipase mildly elevated at 700 After IV fluids and Zofran patient feeling markedly better, tolerating dejan yohannes Impression Viral gastroenteritis Possibly alcoholic gastritis Cannot rule out a mild early pancreatitis Cannabinoid hyperemesis is also in the differential Plan Discharge home Follow up with primary care physician Advised clear liquids and gradually increasing diet as tolerated Return as needed Differential Diagnosis: Differential diagnosis considered but not limited to Gastroenteritis, alcoholic gastritis, hyperemesis syndrome secondary to cannabis , gastritis, pancreatitis, cholecystitis - Data Points Laboratory Results: Laboratory Results 09/07/17 12:35 09/07/17 12:35 09/07/17 09/07/17 09/07/17 12:35 12:35 12:35 WBC 7.04 10^3/uL 10^3/uL (3.80-9.50) RBC 4.70 10^6/uL 10^6/uL (4.40-6.38) Hgb 15.0 g/dL g/dL (13.7-17.5) Hct 43.2 % % (40.0-51.0) MCV 91.9 fL fL (81.5-99.8) MCH 31.9 pg pg (27.9-34.1) MCHC 34.7 g/dL g/dL (32.4-36.7) RDW 13.5 % % (11.5-15.2) Plt Count 235 10^3/uL 10^3/uL (150-400) MPV 9.0 fL fL (8.7-11.7) Neut % (Auto) 77.4 % H % (39.3-74.2) Lymph % (Auto) 15.3 % % (15.0-45.0) [place] % (Auto) 5.8 % % (4.5-13.0) Eos % (Auto) 1.0 % % (0.6-7.6) Baso % (Auto) 0.4 % % (0.3-1.7) Nucleat RBC Rel Count 0.0 % % (0.0-0.2) Absolute Neuts (auto) 5.44 10^3/uL 10^3/uL (1.70-6.50) Absolute Lymphs (auto) 1.08 10^3/uL 10^3/uL (1.00-3.00) Absolute Monos (auto) 0.41 10^3/uL 10^3/uL (0.30-0.80) Absolute Eos (auto) 0.07 10^3/uL 10^3/uL (0.03-0.40) Absolute Basos (auto) 0.03 10^3/uL 10^3/uL (0.02-0.10) Absolute Nucleated RBC 0.00 10^3/uL 10^3/uL (0-0.01) Immature Gran % 0.1 % % (0.0-1.1) Immature Gran # 0.01 10^3/uL 10^3/uL (0.00-0.10) Sodium 141 mEq/L mEq/L (135-145) Potassium 3.7 mEq/L mEq/L (3.5-5.2) Chloride 103 mEq/L mEq/L (97-110) Carbon Dioxide 25 mEq/l mEq/l (22-31) Anion Gap 13 mEq/L mEq/L (8-16) BUN 6 mg/dL L mg/dL (7-23) Creatinine 0.8 mg/dL mg/dL (0.7-1.3) Estimated GFR > 60 Glucose 122 mg/dL H mg/dL (70-100) Calcium 9.3 mg/dL mg/dL (8.5-10.4) Total Bilirubin 1.2 mg/dL mg/dL (0.1-1.4) Conjugated Bilirubin 0.3 mg/dL mg/dL (0.0-0.5) Unconjugated Bilirubin 0.9 mg/dL mg/dL (0.0-1.1) AST 25 IU/L IU/L (17-59) ALT 41 IU/L IU/L (21-72) Alkaline Phosphatase 107 IU/L IU/L (38-126) Troponin I < 0.012 ng/mL ng/mL (0.000-0.034) Total Protein 7.3 g/dL g/dL (6.3-8.2) Albumin 4.0 g/dL g/dL (3.5-5.0) Lipase 732 IU/L H IU/L (23-300) Medications Given: Discontinued Medications Sodium Chloride (Ns) 1,000 mls @ 0 mls/hr IV EDNOW ONE; Wide Open PRN Reason: Protocol Stop: 09/07/17 12:31 Last Admin: 09/07/17 12:44 Dose: 1,000 mls Sodium Chloride (Ns) 1,000 mls @ 0 mls/hr IV ONCE ONE PRN Reason: Wide Open Stop: 09/07/17 12:58 Last Admin: 09/07/17 13:33 Dose: 1,000 mls Ondansetron HCl (Zofran) 4 mg IVP EDNOW ONE Stop: 09/07/17 12:58 Last Admin: 09/07/17 13:33 Dose: 4 mg Departure - Departure Disposition: Home, Routine, Self-Care Clinical Impression: Gastritis, Diarrhea Condition: Good Instructions: Gastritis (ED), Acute Diarrhea (ED) Referrals: Mitch Marie MD [Primary Care Provider] - As per Instructions
[2017-09-07 12:40] LABS: PLATELET COUNT 235 10^3/uL (150-400)
--- NOTE | 2017-09-07 12:44 | CPEKG ---
Heart Rate: 63 RR Interval: 952 P-R Interval: 140 QRSD Interval: 80 QT Interval: 432 QTC Interval: 443 P [place]: 60 QRS [place]: 96 T Wave [place]: 68 EKG Severity - ABNORMAL ECG - EKG Impression: SINUS RHYTHM EKG Impression: LOW VOLTAGE IN FRONTAL LEADS EKG Impression: CONSIDER ANTEROSEPTAL INFARCT EKG Impression: BORDERLINE T ABNORMALITIES, LATERAL LEADS Electronically Signed By: Adonis Hughes 09-Sep-2017 09:38:50
[2017-09-07] MEDS ORDERED: ONDANSETRON 4 MG/2 ML VIAL IVP ONE (12:57)
[2017-09-07 15:01] VITALS: BP 93/50
== END 2017-09-07 15:15 | disposition home or self-care (01) ==
LOC: CED 12:10
DX: K29.70 Gastritis, unspecified, without bleeding (principal); E86.9 Volume depletion, unspecified; J44.9 Chronic obstructive pulmonary disease, unspecified; I25.10 Atherosclerotic heart disease of native coronary artery without angina pectoris; F17.200 Nicotine dependence, unspecified, uncomplicated; Z79.82 Long term (current) use of aspirin
CPT/HCPCS: 80048-PO; 80076-PO; 83690-PO; 84484-PO; 85025-PO; 96374; J2405

== ENCOUNTER 2017-09-09 16:04 | Inpatient (IN) | payer MEDICAID ==
[2017-09-09] MEDS ORDERED: KETOROLAC 30 MG/1 ML SDV IVP ONE (16:14)
[2017-09-09] MEDS ORDERED: ONDANSETRON 4 MG/2 ML VIAL IVP ONE ×2 (16:14→17:37)
[2017-09-09] MEDS ORDERED: NS 1,000 ML IV ONE (16:14)
--- NOTE | 2017-09-09 16:17 | EDPHY ---
H & P Stated Complaint: RLQ abdominal pain, vomiting x 4 days. Seen 09/07/17. Time Seen by Provider: 09/09/17 16:10 HPI/ROS: CHIEF COMPLAINT: Right lower quadrant pain HISTORY OF PRESENT ILLNESS: The patient is a 47-year-old man who comes to the emergency department complaining of right lower quadrant pain. He was seen here 3 days ago and at that time was primarily having vomiting. His workup was unremarkable except for a elevated lipase. He does drink heavily but states he has not drink in the last 4 days. He also smokes significant amount of marijuana. His symptoms improved with fluids and Zofran and she returned home. He states that over the last 2 days his vomiting has returned and is having no lower abdominal pain. No urinary symptoms. Mild diarrhea nonbloody. He states that he vomits whenever he tries to eat or drink anything. He has a history of bilateral inguinal surgery. REVIEW OF SYSTEMS: Constitutional: denies: chills, fever, recent illness, recent injury EENTM: denies: blurred vision, double vision, nose congestion Respiratory: denies: cough, shortness of breath Cardiac: denies: chest pain, irregular heart rate, lightheadedness, palpitations Gastrointestinal/Abdominal: See HPI Genitourinary: denies: dysuria, frequency, hematuria, pain Musculoskeletal: denies: joint pain, muscle pain Skin: denies: lesions, rash, jaundice, bruising Neurological: denies: headache, numbness, paresthesia, tingling, dizziness, weakness Hematologic/Lymphatic: denies: blood clots, easy bleeding, easy bruising Immunologic/allergic: denies: HIV/AIDS, transplant EXAM: GENERAL: Well-appearing, thin and in no acute distress. HEAD: Atraumatic, normocephalic. EYES: Pupils equal round and reactive to light, extraocular movements intact, sclera anicteric, conjunctiva are normal. ENT: TMs normal, nares patent, oropharynx clear without exudates. Moist mucous membranes. NECK: Normal range of motion, supple without lymphadenopathy or JVD. LUNGS: Breath sounds clear to auscultation bilaterally and equal. No wheezes rales or rhonchi. HEART: Regular rate and rhythm without murmurs, rubs or gallops. ABDOMEN: Soft, nontender, normoactive bowel sounds. No guarding, no rebound. No masses appreciated. BACK: No CVA tenderness, no spinal tenderness, step-offs or deformities EXTREMITIES: Normal range of motion, no pitting or edema. No clubbing or cyanosis. NEUROLOGICAL: Cranial nerves II through XII grossly intact. Normal speech, normal gait. 5/5 strength, normal movement in all extremities, normal sensation PSYCH: Normal mood, normal affect. SKIN: Warm, dry, normal turgor, no visible rashes or lesions. Source: Patient Exam Limitations: No limitations - Personal History Current Tetanus Diphtheria and Acellular Pertussis (TDAP): Yes Tetanus Vaccine Date: within 10 yrs - Medical/Surgical History Hx Asthma: Yes Hx Chronic Respiratory Disease: No Hx Diabetes: Yes Hx Cardiac Disease: Yes Hx Renal Disease: No Hx Cirrhosis: No Hx Alcoholism: Yes Hx HIV/AIDS: No Hx Splenectomy or Spleen Trauma: No Other PMH: L/R hernia repair, stent in heart 2014 PR. Alcoholism, marijana, borderline diabetis, schizophrenia, antisocial, - Family History Significant Family History: No pertinent family hx - Social History Smoking Status: Heavy smoker Alcohol Use: Heavy Drug Use: Marijuana Constitutional: Initial Vital Signs Temperature (C) 37.1 C 09/09/17 16:10 Heart Rate 55 L 09/09/17 16:10 Respiratory Rate 18 09/09/17 16:10 Blood Pressure 115/65 09/09/17 16:10 O2 Sat (%) 96 09/09/17 16:10 O2 Delivery Mode Room Air Allergies/Adverse Reactions: erythromycin base [Erythromycin Base] Allergy (Verified 09/09/17 16:16) Pt reports "freaking out" Sulfa (Sulfonamide Antibiotics) Allergy (Verified 09/09/17 16:16) Pt reports rash ANESTHETICS Allergy (Uncoded 09/09/17 16:16) Pt unsure of reaction Home Medications: Medication Instructions Recorded Albuterol [Proventil Inhaler HFA 1 - 2 puffs IH Q4H PRN 09/09/17 (*)] Aspirin EC [Aspirin EC 81 mg (*)] 81 mg PO DAILY 09/09/17 Atorvastatin Calcium [Lipitor 40 80 mg PO HS 09/09/17 mg (*)] Beclomethasone Qvar 40 [Qvar 40 2 inh IH BID 09/09/17 Redihaler (*)] Fluticasone/Salmeter 250/50Mcg 2 puffs IH BID 09/09/17 [Advair 250/50 (*)] OLANZapine [Zyprexa] 10 mg PO HS 09/09/17 Medical Decision Making - Diagnostics Imaging Results: Imaging Impressions Abdomen CT 09/09/17 16:15 Impression: There is an active inflammatory process in the pelvis of uncertain etiology. Only a short portions of a normal gas-filled appendix can be resolved. There is at least one sigmoid diverticulum, without direct evidence of diverticulitis. Results called and discussed with PREM BULL, at 09/09/2017 17:23 General information for patients regarding this examination can be found at [email or web address]. If you have questions or comments about this report, please contact me at [phone] (hospital) or [phone] (cell). Imaging: Discussed imaging studies w/ shipping room helper Radiologist ED Course/Re-evaluation: 5:30 p.m. I discussed the case with the patient and his . I then discussed it with Dr. Elif Antunez who agrees to consult and recommends admission to the hospital service. It is unclear what is causing this patient's abdominal pain with an elevated lipase but primarily lower abdominal pain and pelvic inflammation on CT scan. Differential Diagnosis: Partial list of the Differential diagnosis considered include but were not limited to; pancreatitis, appendicitis, urinary tract infection, diverticulitis and although unlikely based on the history and physical exam, I also considered stone, torsion, STD. - Data Points Laboratory Results: Laboratory Results 09/09/17 16:26 09/09/17 16:26 09/09/17 09/09/17 09/09/17 16:40 16:26 16:26 WBC 5.74 10^3/uL 10^3/uL (3.80-9.50) RBC 4.44 10^6/uL 10^6/uL (4.40-6.38) Hgb 14.5 g/dL g/dL (13.7-17.5) Hct 40.1 % % (40.0-51.0) MCV 90.3 fL fL (81.5-99.8) MCH 32.7 pg pg (27.9-34.1) MCHC 36.2 g/dL g/dL (32.4-36.7) RDW 13.3 % % (11.5-15.2) Plt Count 219 10^3/uL 10^3/uL (150-400) MPV 9.2 fL fL (8.7-11.7) Neut % (Auto) 58.1 % % (39.3-74.2) Lymph % (Auto) 28.4 % % (15.0-45.0) [place] % (Auto) 10.8 % % (4.5-13.0) Eos % (Auto) 1.6 % % (0.6-7.6) Baso % (Auto) 0.9 % % (0.3-1.7) Nucleat RBC Rel Count 0.0 % % (0.0-0.2) Absolute Neuts (auto) 3.34 10^3/uL 10^3/uL (1.70-6.50) Absolute Lymphs (auto) 1.63 10^3/uL 10^3/uL (1.00-3.00) Absolute Monos (auto) 0.62 10^3/uL 10^3/uL (0.30-0.80) Absolute Eos (auto) 0.09 10^3/uL 10^3/uL (0.03-0.40) Absolute Basos (auto) 0.05 10^3/uL 10^3/uL (0.02-0.10) Absolute Nucleated RBC 0.00 10^3/uL 10^3/uL (0-0.01) Immature Gran % 0.2 % % (0.0-1.1) Immature Gran # 0.01 10^3/uL 10^3/uL (0.00-0.10) Sodium 140 mEq/L mEq/L (135-145) Potassium 3.4 mEq/L L mEq/L (3.5-5.2) Chloride 106 mEq/L mEq/L (97-110) Carbon Dioxide 25 mEq/l mEq/l (22-31) Anion Gap 9 mEq/L mEq/L (8-16) BUN 4 mg/dL L mg/dL (7-23) Creatinine 0.7 mg/dL mg/dL (0.7-1.3) Estimated GFR > 60 Glucose 90 mg/dL mg/dL (70-100) Calcium 9.3 mg/dL mg/dL (8.5-10.4) Total Bilirubin 1.4 mg/dL mg/dL (0.1-1.4) Conjugated Bilirubin 0.3 mg/dL mg/dL (0.0-0.5) Unconjugated Bilirubin 1.1 mg/dL mg/dL (0.0-1.1) AST 15 IU/L L IU/L (17-59) ALT 33 IU/L IU/L (21-72) Alkaline Phosphatase 100 IU/L IU/L (38-126) Total Protein 6.8 g/dL g/dL (6.3-8.2) Albumin 3.8 g/dL g/dL (3.5-5.0) Lipase 1868 IU/L H IU/L (23-300) Urine Color YELLOW Urine Appearance CLEAR Urine pH 6.0 (5.0-7.5) Ur Specific [place] 1.010 (1.002-1.030) Urine Protein NEGATIVE (NEGATIVE) Urine Ketones NEGATIVE (NEGATIVE) Urine Blood NEGATIVE (NEGATIVE) Urine Nitrate NEGATIVE (NEGATIVE) Urine Bilirubin NEGATIVE (NEGATIVE) Urine Urobilinogen 0.2 EU EU (0.2-1.0) Ur Leukocyte Esterase NEGATIVE (NEGATIVE) Urine RBC NONE SEEN /hpf /hpf (0-3) Urine WBC NONE SEEN /hpf /hpf (0-3) Ur Epithelial Cells TRACE /lpf /lpf (NONE-1+) Urine Glucose NEGATIVE (NEGATIVE) Medications Given: Atorvastatin Calcium (Lipitor) 80 mg PO HS [place] Stop: 03/08/18 20:59 Last Admin: 09/09/17 21:44 Dose: 80 mg Beclomethasone Dipropionate (Qvar Redihaler) 2 inh IH BID [place] Stop: 03/08/18 20:59 Last Admin: 09/09/17 21:45 Dose: 2 inh Potassium Chloride/Dextrose/Sod Cl (D5w 1/2 Ns W/ 20 Kcl/L) 1,000 mls @ 100 mls /hr IV CONT [place] Stop: 03/08/18 20:29 Last Admin: 09/09/17 21:44 Dose: 1,000 mls Olanzapine (Olanzapine) 10 mg PO HS [place] Stop: 03/08/18 20:59 Last Admin: 09/09/17 21:44 Dose: 10 mg Ondansetron HCl (Zofran) 4 mg IVP Q4 PRN PRN Reason: Nausea/Vomiting, Can't Take PO Stop: 03/08/18 20:17 Last Admin: 09/09/17 21:45 Dose: 4 mg Fluticasone/Salmeterol (Advair) 2 puffs IH BID [place] Stop: 03/08/18 20:59 Last Admin: 09/09/17 21:45 Dose: 2 puffs Discontinued Medications Sodium Chloride (Ns) 1,000 mls @ 0 mls/hr IV EDNOW ONE; Wide Open PRN Reason: Protocol Stop: 09/09/17 16:15 Last Admin: 09/09/17 16:26 Dose: 1,000 mls Ketorolac Tromethamine (Toradol) 15 mg IVP EDNOW ONE Stop: 09/09/17 16:15 Last Admin: 09/09/17 16:26 Dose: 15 mg Ondansetron HCl (Zofran) 4 mg IVP EDNOW ONE Stop: 09/09/17 16:15 Last Admin: 09/09/17 16:26 Dose: 4 mg Ondansetron HCl (Zofran) 4 mg IVP EDNOW ONE Stop: 09/09/17 17:38 Last Admin: 09/09/17 17:41 Dose: 4 mg Departure - Departure Disposition: [facility] Acute Clinical Impression: Abdominal pain Qualifiers: Abdominal location: lower abdomen, unspecified Qualified Code(s): R10.30 - Lower abdominal pain, unspecified Condition: Fair
[2017-09-09] MEDS ORDERED: IOPAMIDOL (ISOVUE-300) 100 ML BTL ONE (16:33)
[2017-09-09 16:40] LABS: PLATELET COUNT 219 10^3/uL (150-400)
[2017-09-09] MEDS ORDERED: ACETAMINOPHEN 325 MG TAB PO PRN (20:18)
[2017-09-09] MEDS ORDERED: PROMETHAZINE HCL 25 MG/ML INJ IVP PRN (20:18)
[2017-09-09] MEDS ORDERED: LOPERAMIDE HCL 2 MG CAP PO PRN (20:18)
[2017-09-09] MEDS ORDERED: ALBUTEROL 60 PUFFS/8 GM MDI IH PRN (20:18)
--- NOTE | 2017-09-09 20:24 | PDGENHP ---
History and Physical - Chief Complaint Nausea vomiting diarrhea and abdominal pain - History of Present Illness This is a 47-year-old male with history of schizophrenia and bipolar who presented to the emergency department initially on the with abdominal complaints. The patient states that he developed what he described as "an upset stomach"on Friday. Starting Friday developed some nausea vomiting and diarrhea. His appetite has been very poor over the past few days but he associates this with stopping his Zyprexa which he did last week when his prescription ran out. He describes the abdominal pain as lower and sharp. He has had some night sweats but has not taken his temperature. He denies any sick contacts. He does have a history of alcohol use but tells me he has not had anything to drink for 2 weeks. History Information - Allergies/Home Medication List Allergies/Adverse Reactions: erythromycin base [Erythromycin Base] Allergy (Verified 09/09/17 16:16) Pt reports "freaking out" Sulfa (Sulfonamide Antibiotics) Allergy (Verified 09/09/17 16:16) Pt reports rash ANESTHETICS Allergy (Uncoded 09/09/17 16:16) Pt unsure of reaction Home Medications: Albuterol [Proventil Inhaler HFA (*)] 1 - 2 puffs IH Q4H PRN 09/09/17 [Last Taken Unknown] Aspirin EC [Aspirin EC 81 mg (*)] 81 mg PO DAILY 09/09/17 [Last Taken 09/08/17] Atorvastatin Calcium [Lipitor 40 mg (*)] 80 mg PO HS 09/09/17 [Last Taken ] Beclomethasone Qvar 40 [Qvar 40 Redihaler (*)] 2 inh IH BID 09/09/17 [Last Taken 09/08/17] Fluticasone/Salmeter 250/50Mcg [Advair 250/50 (*)] 2 puffs IH BID 09/09/17 [ Last Taken 09/08/17] OLANZapine [Zyprexa] 10 mg PO HS 09/09/17 [Last Taken 09/02/17] I have personally reviewed and updated: family history, medical history, social history, surgical history - Past Medical History coronary artery disease (Status post stent placement), COPD, hyperlipidemia Additional medical history: Alcohol abuse, cannabis use - Surgical History Additional surgical history: Hernia repair - Social History Smoking Status: Heavy smoker Alcohol Use: Heavy (States last drink was 2 weeks ago) Drug Use: Marijuana Review of Systems Review of Systems: ROS: 10pt was reviewed & negative except for what was stated in HPI & below Physical Exam Physical Exam: Temp Pulse Resp BP Pulse Ox 37.0 C 53 L 16 113/66 96 09/09/17 19:16 09/09/17 19:16 09/09/17 19:16 09/09/17 19:16 09/09/17 19:16 Constitutional: no apparent distress, appears nourished, not in pain Eyes: PERRL, anicteric sclera, EOMI Ears, Nose, Mouth, Throat: moist mucous membranes, hearing normal, ears appear normal, no oral mucosal ulcers Cardiovascular: regular rate and rhythym, no murmur, rub, or gallop, No edema Respiratory: no respiratory distress, no rales or rhonchi, clear to auscultation Gastrointestinal: normoactive bowel sounds, soft, non-tender abdomen, no palpable masses Genitourinary: no bladder fullness, no bladder tenderness Skin: warm, normal color, no rashes or abrasions, no fluctuance, no induration, No mottled Musculoskeletal: full muscle strength, no muscle tenderness, normal joint ROM, no joint effusions Neurologic: AAOx3, CN II-XII Intact, No facial droop Psychiatric: interacting appropriately, not anxious, not encephalopathic, thought process linear Lymph, Heme, Immunologic: no cervical LAD, no supraclavicular LAD Lab Data & Imaging Review 09/09/17 16:26 09/09/17 16:26 WBC 5.74 10^3/uL (3.80-9.50) 09/09/17 16:26 RBC 4.44 10^6/uL (4.40-6.38) 09/09/17 16:26 Hgb 14.5 g/dL (13.7-17.5) 09/09/17 16:26 Hct 40.1 % (40.0-51.0) 09/09/17 16:26 MCV 90.3 fL (81.5-99.8) 09/09/17 16:26 MCH 32.7 pg (27.9-34.1) 09/09/17 16:26 MCHC 36.2 g/dL (32.4-36.7) 09/09/17 16:26 RDW 13.3 % (11.5-15.2) 09/09/17 16:26 Plt Count 219 10^3/uL (150-400) 09/09/17 16:26 MPV 9.2 fL (8.7-11.7) 09/09/17 16:26 Neut % (Auto) 58.1 % (39.3-74.2) 09/09/17 16:26 Lymph % (Auto) 28.4 % (15.0-45.0) 09/09/17 16:26 [place] % (Auto) 10.8 % (4.5-13.0) 09/09/17 16:26 Eos % (Auto) 1.6 % (0.6-7.6) 09/09/17 16: Baso % (Auto) 0.9 % (0.3-1.7) 09/09/17 16: Nucleat RBC Rel Count 0.0 % (0.0-0.2) 09/09/17 16: Absolute Neuts (auto) 3.34 10^3/uL (1.70-6.50) 09/09/17 16: Absolute Lymphs (auto) 1.63 10^3/uL (1.00-3.00) 09/09/17 16:26 Absolute Monos (auto) 0.62 10^3/uL (0.30-0.80) 09/09/17 16:26 Absolute Eos (auto) 0.09 10^3/uL (0.03-0.40) 09/09/17 16: Absolute Basos (auto) 0.05 10^3/uL (0.02-0.10) 09/09/17 16: Absolute Nucleated RBC 0.00 10^3/uL (0-0.01) 09/09/17 16:26 Immature Gran % 0.2 % (0.0-1.1) 09/09/17 16: Immature Gran # 0.01 10^3/uL (0.00-0.10) 09/09/17 16:26 Sodium 140 mEq/L (135-145) 09/09/17 16:26 Potassium 3.4 mEq/L (3.5-5.2) L 09/09/17 16:26 Chloride 106 mEq/L (97-110) 09/09/17 16:26 Carbon Dioxide 25 mEq/l (22-31) 09/09/17 16:26 Anion Gap 9 mEq/L (8-16) 09/09/17 16:26 BUN 4 mg/dL (7-23) L 09/09/17 16:26 Creatinine 0.7 mg/dL (0.7-1.3) 09/09/17 16:26 Estimated GFR > 60 09/09/17 16:26 Glucose 90 mg/dL (70-100) 09/09/17 16:26 Calcium 9.3 mg/dL (8.5-10.4) 09/09/17 16:26 Total Bilirubin 1.4 mg/dL (0.1-1.4) 09/09/17 16:26 Conjugated Bilirubin 0.3 mg/dL (0.0-0.5) 09/09/17 16:26 Unconjugated Bilirubin 1.1 mg/dL (0.0-1.1) 09/09/17 16:26 AST 15 IU/L (17-59) L 09/09/17 16:26 ALT 33 IU/L (21-72) 09/09/17 16:26 Alkaline Phosphatase 100 IU/L (38-126) 09/09/17 16:26 Total Protein 6.8 g/dL (6.3-8.2) 09/09/17 16:26 Albumin 3.8 g/dL (3.5-5.0) 09/09/17 16:26 Lipase 1868 IU/L (23-300) H 09/09/17 16:26 Urine Color YELLOW 09/09/17 16:40 Urine Appearance CLEAR 09/09/17 16:40 Urine pH 6.0 (5.0-7.5) 09/09/17 16:40 Ur Specific [place] 1.010 (1.002-1.030) 09/09/17 16:40 Urine Protein NEGATIVE (NEGATIVE) 09/09/17 16:40 Urine Ketones NEGATIVE (NEGATIVE) 09/09/17 16:40 Urine Blood NEGATIVE (NEGATIVE) 09/09/17 16:40 Urine Nitrate NEGATIVE (NEGATIVE) 09/09/17 16:40 Urine Bilirubin NEGATIVE (NEGATIVE) 09/09/17 16:40 Urine Urobilinogen 0.2 EU (0.2-1.0) 09/09/17 16:40 Ur Leukocyte Esterase NEGATIVE (NEGATIVE) 09/09/17 16:40 Urine RBC NONE SEEN /hpf (0-3) 09/09/17 16:40 Urine WBC NONE SEEN /hpf (0-3) 09/09/17 16:40 Ur Epithelial Cells TRACE /lpf (NONE-1+) 09/09/17 16:40 Urine Glucose NEGATIVE (NEGATIVE) 09/09/17 16:40 Imaging Review: CT abdomen and pelvis was reviewed: There is a small amount of free fluid in the pelvis with average Hounsfield units = 9. There is diffuse edema in the pelvic fat. Visualized and Interpreted imaging results: Yes Assessment & Plan Assessment: This is a 47-year-old male with history of bipolar disorder/schizophrenia presenting with: # abdominal pain with nausea vomiting and diarrhea with CT scan showing an active inflammatory process of unclear etiology -I discussed case Dr. Boswell in the emergency department his consult to Dr. Lord for her opinion. At the time of my exam the patient's abdomen is soft and not consistent with an acute abdomen. -send stool for pathogen panel by PCR -stool ova and parasites -check ESR and CRP # elevated lipase with a normal pancreas on imaging -patient's symptoms do not seem entirely consistent with pancreatitis however this remains in the differential. # history of coronary artery disease # history of COPD # history of tobacco abuse # history of alcohol abuse with reported last drink 2 weeks ago # mild hypokalemia -replace per protocol Disposition: The patient will be placed on observation pending further workup and evaluation
[2017-09-09] MEDS: OLANZapine 10 MG TAB PO SCH (21:44)
[2017-09-09] MEDS: ATORVASTATIN CALCIUM 40 MG TAB PO SCH (21:44)
[2017-09-09] MEDS: D5W 1/2 NS W/ 20 KCl/L 1,000 ML IV SCH (21:44)
[2017-09-09] MEDS: ONDANSETRON 4 MG/2 ML VIAL IVP PRN (21:45)
[2017-09-09] MEDS: FLUTICASONE/SALMETER 250/50MCG DISKUS IH SCH (21:45)
[2017-09-09] MEDS: BECLOMETHASONE QVAR 40 REDIHALER 120 INH/10.6 GM MDI IH SCH (21:45)
[2017-09-09] MEDS ORDERED: MAG HYDROX/AL HYDROX/SIMETH 30 ML UDCUP PO PRN (23:51)
[2017-09-10 05:48] LABS: PLATELET COUNT 175 10^3/uL (150-400)
[2017-09-10] MEDS: SUCRALFATE 1 GM/10 ML UDCUP PO SCH ×4 (06:40→20:15)
[2017-09-10] MEDS ORDERED: NS 500 ML IV ONE ×2 (07:55→10:30)
[2017-09-10] MEDS: D5W 1/2 NS W/ 20 KCl/L 1,000 ML IV SCH ×2 (08:03→20:30)
[2017-09-10] MEDS ORDERED: POTASSIUM CL 10 MEQ TAB PO ONE (08:13)
[2017-09-10] MEDS: ONDANSETRON 4 MG/2 ML VIAL IVP PRN (08:18)
[2017-09-10] MEDS: ASPIRIN EC 81 MG TAB PO SCH (09:36)
[2017-09-10] MEDS: BECLOMETHASONE QVAR 40 REDIHALER 120 INH/10.6 GM MDI IH SCH ×3 (09:37→21:28)
[2017-09-10] MEDS: NICOTINE 21 MG/24 HR PATCH TD SCH (09:46)
[2017-09-10] MEDS: FLUTICASONE/SALMETER 250/50MCG DISKUS IH SCH ×2 (10:05→21:28)
--- NOTE | 2017-09-10 10:31 | HOSPPROG ---
Hospitalist Progress Note Assessment/Plan: This is a 47-year-old male with history of bipolar disorder/schizophrenia presented with abdominal pain, n, v and diarrhea. # abdominal pain with nausea vomiting and diarrhea with CT scan showing an active inflammatory process of unclear etiology -CT scan shows an inflammatory process/ not clear cut -surgery to see -awaiting stool studeis -abdominal pain is in the epigastric area and llq #Cannibis use #Hypotension -fluid bolus # elevated lipase with a normal pancreas on imaging -patient's symptoms do not seem entirely consistent with pancreatitis -said he had a drink 2 weeks ago # history of coronary artery disease # history of COPD # history of tobacco abuse # history of alcohol abuse with reported last drink 2 weeks ago # mild hypokalemia -replace per protocol Disposition: The patient will be placed on observation pending further workup and evaluation Subjective: Alicia said he eats lots of fast food, "kayli's, taco baum" . Has vague abominal pain, but eating well now. Objective: Vital Signs Temp Pulse Resp BP Pulse Ox 36.6 C 54 L 14 86/44 L 95 09/10/17 09:45 09/10/17 10:07 09/10/17 10:07 09/10/17 09:45 09/10/17 10:07 Laboratory Results 09/10/17 05:28 09/10/17 05:28 09/09/17 09/10/17 09/11/17 05:59 05:59 05:59 Intake Total 2504 Balance 2504 - Physical Exam Constitutional: not in pain, chronically ill appearing, other (thin) Ears, Nose, Mouth, Throat: poor dentition Cardiovascular: regular rate and rhythym Respiratory: no respiratory distress Gastrointestinal: normoactive bowel sounds, No tenderness (slight in epigastric area) Skin: warm Musculoskeletal: full muscle strength Neurologic: AAOx3 Psychiatric: interacting appropriately ICD10 Worksheet Patient Problems: Problems Problem Status Onset Abdominal pain Acute Acute bronchitis Acute Chest pain Acute
--- NOTE | 2017-09-10 11:53 | ASMTCMCOM ---
CM Note CM Note Notes: Met with pt, states is in the process of getting . He and his were living with a roomate, Mary Lou, but his left because she got tired of his anger issues. He is still living with roomate but gets the sense that she would like him to find another place. Pt currentl gets medications through [facility], his director of casework is Brittani. Anticipate pt will dc home independent when medically stable. CM available for any changes. Spoke with pt about drinking and marijuana use, left resource folder. DC Plan: Independent Date Signed: 09/10/2017 11:52 AM Electronically Signed By:Rylee Joshua RN
--- NOTE | 2017-09-10 11:54 | ASMTCAGE ---
CAGE Do you feel you ought to Answers: Yes cut down on your drinking or drug use? Do people annoy you by Answers: Yes criticizing your drinking or drug use? Do you feel guilty about Answers: No your drinking or drug use? Do you drink or use drugs Answers: Yes first thing in the morning ([employer])? Date Signed: 09/10/2017 11:53 AM Electronically Signed By:Rylee Joshua RN
--- NOTE | 2017-09-10 11:59 | SOAPPROG ---
SOAP Progress Note Assessment/Plan: Assessment/Plan: 47yo M admitted with abdominal pain. CT on admit with pelvic inflammation, no acute issues elevated lipase on admission ate taco baum and pizza on friday Sat burrito and hamburger developed abdominal pain severe on friday with diarrhea. then vomiting uses rec mj last etoh 2 weeks ago Consider Gi consult S: nausea now. diarrhea last night, more firm this am. eating. no vomiting O: +BS, abd soft, nt, nd. no rebound or guarding Previous hernia repair L open 09/10/17 12:04 Objective: Vital Signs Temp Pulse Resp BP Pulse Ox 36.7 C 52 L 16 92/44 L 95 09/10/17 11:07 09/10/17 11:07 09/10/17 11:07 09/10/17 11:07 09/10/17 11:07 Laboratory Results 09/10/17 05:28 09/10/17 05:28 09/09/17 09/10/17 09/11/17 05:59 05:59 05:59 Intake Total 2504 Balance 2504 ICD10 Worksheet Patient Problems: Problems Problem Status Onset Abdominal pain Acute Acute bronchitis Acute Chest pain Acute
--- NOTE | 2017-09-10 12:41 | GCON ---
[f rep st] CONSULTATION DATE OF CONSULTATION: 09/10/2017 REQUESTING PHYSICIAN: Dr. Sami Garcia. REASON FOR CONSULTATION: Abdominal pain. HISTORY OF PRESENT ILLNESS: The patient is a 47-year-old man who first noted abdominal pain on September 05, 2017. He reported that he ate [employer], followed by pizza and then had some abdominal pain. The next day he ate a burrito and a hamburger, and the hamburger came up a little bit. He also had diarrhea. On Friday, he smoked 2 g of marijuana and felt better. On Friday, he was still having some abdominal pain and queasiness. He went to the park to meet with a friend and he had not had much oral intake. He drank some green tea and then had some bilious emesis. He went to the restroom, and then drank more and had some orange and brown vomit. He then laid down. He reports he felt better. However, when he was lying down at his house, his sree-cat stepped on his abdomen in the right lower quadrant and that caused a lot of pain. The pain continued throughout the day. He has continued to have loose stools. His last alcoholic drink was 2 weeks ago. Milk normally makes his pain better but he did not try that this time. PAST MEDICAL HISTORY: Bipolar and schizophrenia, reactive airway disease, hyperlipidemia, coronary artery disease. PAST SURGICAL HISTORY: Open right inguinal hernia repair. SOCIAL HISTORY: He does use tobacco products. He uses marijuana daily. He is but it sounds like he lives with a roommate. REVIEW OF SYSTEMS: 10-point review of systems negative except per HPI. PHYSICAL EXAM: VITALS: Reviewed. GENERAL: Pleasant, thin, well-groomed man. HEENT: Normocephalic. No gross hearing deficits. Mucous membranes moist. Pupils equal and round. LUNGS: Clear to auscultation bilaterally. No increased work of breathing. CARDIAC: Regular rate. No peripheral edema. ABDOMEN: Bowel sounds present. He is soft. He is tender over the right inguinal scar line. NEURO: Grossly intact. PSYCH: Interacting appropriately. SKIN: Warm and dry. RESULTS: Reviewed. I personally reviewed his laboratory work. His white count is normal. His lipase is elevated. I reviewed the CT scan of his abdomen and pelvis. There is a small amount of fluid and there is edema in the pelvic fat. IMPRESSION/PLAN: 47-year-old presenting with abdominal pain with nausea, vomiting, diarrhea. His stool studies are pending. I do not see any surgical issue. It may be beneficial to have Gastroenterology weigh in on his elevated lipase as that is rising, as well as his abdominal pain. This could be related to his diet of Taco [employer], pizza, burritos, hamburgers. He could also have enteritis vs atypical pancreatitis vs ulcer. I do not think he has appendicitis. He reports his abdominal pain is improved today. Do not hesitate to call with any questions or concerns /[id number]/MODL MTDD
--- NOTE | 2017-09-10 16:25 | PDMN ---
Medical Necessity Medical necessity: Change to IP, as of 09/10/17, per [employer]; los >2 mn for ongoing management of abdominal pain, N/V & diarrhea of unclear etiology, as well as hypotension & elevated lipase; admit for further monitoring, Surgery consult & IVFs; hx CAD, COPD, bipolar disorder, schizophrenia & alcohol abuse; per progress note & order 09/10/17
[2017-09-10] MEDS: ATORVASTATIN CALCIUM 40 MG TAB PO SCH (20:14)
[2017-09-10] MEDS: OLANZapine 10 MG TAB PO SCH (20:14)
[2017-09-11] MEDS: D5W 1/2 NS W/ 20 KCl/L 1,000 ML IV SCH ×2 (07:21→18:03)
[2017-09-11] MEDS: SUCRALFATE 1 GM/10 ML UDCUP PO SCH ×4 (07:41→21:31)
[2017-09-11] MEDS: BECLOMETHASONE QVAR 40 REDIHALER 120 INH/10.6 GM MDI IH SCH ×2 (09:16→20:57)
[2017-09-11] MEDS: FLUTICASONE/SALMETER 250/50MCG DISKUS IH SCH ×2 (09:17→20:56)
[2017-09-11] MEDS: NICOTINE 21 MG/24 HR PATCH TD SCH (09:29)
[2017-09-11] MEDS: ASPIRIN EC 81 MG TAB PO SCH (09:29)
--- NOTE | 2017-09-11 12:58 | HOSPPROG ---
Hospitalist Progress Note Assessment/Plan: This is a 47-year-old male with history of bipolar disorder/schizophrenia presented with abdominal pain, n, v and diarrhea. First encounter, chart reviewed. D/W Cm and RN. # abdominal pain with nausea vomiting and diarrhea with CT scan showing an active inflammatory process of unclear etiology -CT scan shows an inflammatory process/ not clear cut -appreciate surgery consult -stool study negative -abdominal pain is better but in llq #Cannibis use #Emesis -attempted lunch -threw up after #Hypotension -fluid bolus # elevated lipase with a normal pancreas on imaging -resolved -patient's symptoms do not seem entirely consistent with pancreatitis -said he had a drink 2 weeks ago # history of coronary artery disease # history of COPD # history of tobacco abuse # history of alcohol abuse with reported last drink 2 weeks ago # mild hypokalemia -replace per protocol Disposition: will need supportive care Subjective: Feels better today but very gassy with lower pain. Objective: Vital Signs Temp Pulse Resp BP Pulse Ox 36.6 C 76 14 100/52 L 97 09/11/17 07:29 09/11/17 09:18 09/11/17 09:18 09/11/17 07:44 09/11/17 09:18 Microbiology 09/10/17 10:04 Gastrointestinal Tract Panel (PCR) - Final Stool No Organism Detected Laboratory Results 09/10/17 05:28 09/11/17 04:43 09/10/17 09/11/17 09/12/17 05:59 05:59 05:59 Intake Total 1504 1340 Balance 1504 1340 - Physical Exam Constitutional: chronically ill appearing, uncomfortable, cachectic Eyes: PERRL, anicteric sclera, EOMI Ears, Nose, Mouth, Throat: moist mucous membranes, hearing normal, ears appear normal Cardiovascular: No JVD, No tachycardia, No edema Respiratory: no respiratory distress, no rales or rhonchi, clear to auscultation Gastrointestinal: normoactive bowel sounds, No tenderness, No ascites Skin: warm, normal color, No mottled Musculoskeletal: no muscle tenderness, normal joint ROM, generalized weakness Neurologic: AAOx3 Psychiatric: interacting appropriately, not anxious, not encephalopathic, poor insight ICD10 Worksheet Patient Problems: Problems Problem Status Onset Chest pain Acute Acute bronchitis Acute Abdominal pain Acute
[2017-09-11] MEDS: ATORVASTATIN CALCIUM 40 MG TAB PO SCH (21:30)
[2017-09-11] MEDS: OLANZapine 10 MG TAB PO SCH (21:31)
[2017-09-12] MEDS: D5W 1/2 NS W/ 20 KCl/L 1,000 ML IV SCH ×2 (03:57→17:57)
[2017-09-12] MEDS: SUCRALFATE 1 GM/10 ML UDCUP PO SCH ×4 (08:13→21:08)
[2017-09-12] MEDS: FLUTICASONE/SALMETER 250/50MCG DISKUS IH SCH ×2 (08:40→21:38)
[2017-09-12] MEDS: BECLOMETHASONE QVAR 40 REDIHALER 120 INH/10.6 GM MDI IH SCH ×2 (08:40→21:35)
[2017-09-12] MEDS: NICOTINE 21 MG/24 HR PATCH TD SCH (08:47)
[2017-09-12] MEDS: ASPIRIN EC 81 MG TAB PO SCH (09:36)
--- NOTE | 2017-09-12 11:56 | HOSPPROG ---
Hospitalist Progress Note Assessment/Plan: This is a 47-year-old male with history of bipolar disorder/schizophrenia presented with abdominal pain, n, v and diarrhea. D/W Dr Nguyen. # abdominal pain with nausea vomiting and diarrhea -CT scan shows an inflammatory process/ not clear cut -appreciate surgery consult -stool study negative -abdominal pain is better but in llq #Cannibis use #Emesis -conts to throw up when when eating -EGD -consider barium study after if needed #Hypotension -resolved # elevated lipase with a normal pancreas on imaging -resolved -patient's symptoms do not seem entirely consistent with pancreatitis -said he had a drink 2 weeks ago # history of coronary artery disease # history of COPD # history of tobacco abuse # history of alcohol abuse with reported last drink 2 weeks ago # mild hypokalemia -replace per protocol Disposition: will need supportive care plan for possible egd consider further studies if symptoms cont Subjective: Still throwing up with food. No pain. Feeling a bit better. Objective: Vital Signs Temp Pulse Resp BP Pulse Ox 36.8 C 52 L 16 114/54 L 96 09/12/17 10:50 09/12/17 10:50 09/12/17 10:50 09/12/17 10:50 09/12/17 10:50 Laboratory Results 09/10/17 05:28 09/11/17 04:43 09/11/17 09/12/17 09/13/17 05:59 05:59 05:59 Intake Total 1340 1100 1000 Output Total 300 Balance 5051 329 5032 - Physical Exam Constitutional: not in pain, chronically ill appearing, cachectic Eyes: PERRL, anicteric sclera, EOMI Ears, Nose, Mouth, Throat: moist mucous membranes, hearing normal, ears appear normal Cardiovascular: regular rate and rhythym, No JVD, No edema Respiratory: no respiratory distress, no rales or rhonchi, clear to auscultation Gastrointestinal: normoactive bowel sounds, No tenderness, No ascites Skin: warm, normal color, No mottled Musculoskeletal: normal joint ROM, no joint effusions, generalized weakness Neurologic: AAOx3 Psychiatric: interacting appropriately, not anxious, not encephalopathic, thought process linear ICD10 Worksheet Patient Problems: Problems Problem Status Onset Chest pain Acute Acute bronchitis Acute Abdominal pain Acute
[2017-09-12] MEDS ORDERED: LR 1,000 ML IV ONE (14:11)
--- NOTE | 2017-09-12 14:15 | ASMTCMCOM ---
CM Note CM Note Notes: Spoke w/RN, pt still vomiting. He will have an EGD, dc date uncertain. CM spoke w/pt about drug use and left resources. He told CM that he and his are in the process of , he is staying with a roomate but may need to find a new place soon. Otherwise pt will dc independent when medically stable, CM available for any changes. DC Plan: Independent Date Signed: 09/12/2017 02:14 PM Electronically Signed By:Rylee Joshua RN
[2017-09-12] MEDS ORDERED: PROPOFOL/EMULSION 500 MG/50 ML BOTTLE IV ONE (15:01)
[2017-09-12] MEDS ORDERED: MIDAZOLAM 2 MG/2 ML VIAL ONE (15:01)
[2017-09-12] MEDS ORDERED: ALBUTEROL 3 ML DEYVIAL IH PRN (15:05)
[2017-09-12] MEDS ORDERED: NALOXONE HCL 0.4 MG/ML INJ IVP PRN (15:05)
[2017-09-12] MEDS ORDERED: LR 500 ML IV PRN (15:05)
[2017-09-12] MEDS ORDERED: ONDANSETRON 4 MG/2 ML VIAL IVP PRN (15:05)
[2017-09-12] MEDS ORDERED: fentaNYL 100 MCG/2 ML INJ IVP PRN (15:05)
--- NOTE | 2017-09-12 15:05 | PDANEPAE ---
ANE Past Medical History - Pulmonary History Hx Oxygen in Use at Home: No Hx Sleep Apnea: No Sleep Apnea Screening Result - Last Documented: Positive - Endocrine History Hx Diabetes: Yes ANE Review of Systems Review of Systems: ANE Patient History - Allergies Allergies/Adverse Reactions: erythromycin base [Erythromycin Base] Allergy (Verified 09/09/17 16:16) Pt reports "freaking out" Sulfa (Sulfonamide Antibiotics) Allergy (Verified 09/09/17 16:16) Pt reports rash ANESTHETICS Allergy (Uncoded 09/09/17 16:16) Pt unsure of reaction - Home Medications Home Medications: Albuterol [Proventil Inhaler HFA (*)] 1 - 2 puffs IH Q4H PRN 09/09/17 [Last Taken Unknown] Aspirin EC [Aspirin EC 81 mg (*)] 81 mg PO DAILY 09/09/17 [Last Taken 09/08/17] Atorvastatin Calcium [Lipitor 40 mg (*)] 80 mg PO HS 09/09/17 [Last Taken ] Beclomethasone Qvar 40 [Qvar 40 Redihaler (*)] 2 inh IH BID 09/09/17 [Last Taken 09/08/17] Fluticasone/Salmeter 250/50Mcg [Advair 250/50 (*)] 2 puffs IH BID 09/09/17 [ Last Taken 09/08/17] OLANZapine [Zyprexa] 10 mg PO HS 09/09/17 [Last Taken 09/02/17] - NPO status NPO Since - Liquids (Date): 09/12/17 NPO Since - Liquids (Time): 07:30 NPO Since - Solids (Date): 09/11/17 NPO Since - Solids (Time): 20:00 - Smoking Hx Smoking Status: Heavy smoker - Alcohol Use Alcohol Use: Heavy ANE Labs/Vital Signs - Labs Result Diagrams: 09/10/17 05:28 09/11/17 04:43 - Vital Signs Blood Pressure: 114/54 Heart Rate: 52 Respiratory Rate: 16 O2 Sat (%): 96 Height: 165.1 cm Weight: 52 kg ANE Physical Exam - Airway Neck exam: FROM Mallampati Score: Class 1 Mouth exam: poor dentition - Pulmonary Pulmonary: no respiratory distress, no rales or rhonchi, reduced air movement - Cardiovascular Cardiovascular: regular rate and rhythym, no murmur, rub, or gallop - ASA Status ASA Status: III ANE Anesthesia Plan Anesthesia Plan: GA with mask
--- NOTE | 2017-09-12 15:36 | POSTANESTH ---
Post Anesthetic Evaluation Cardiovascular Status: Normal, Stable, Similar to Pre-Op Cond Respiratory Status: Normal, Stable, Similar to Pre-op Cond. Level of Consciousness/Mental Status: Moderately Sleepy Pain Control: Adequate, Prn Tx Ordered Nausea/Vomiting Control: Adequate, Prn Tx Ordered Complications Possibly Related to Anesthesia: None Noted
--- NOTE | 2017-09-12 15:55 | GCON ---
[f rep st] CONSULTATION INPATIENT CONSULTATION NOTE REQUESTING PHYSICIAN: Dr. Nelida Banda. REASON FOR CONSULTATION: Abdominal discomfort, nausea, vomiting, inability to eat. HISTORY OF PRESENT ILLNESS: The patient is a 47-year-old male with a history of schizophrenia and bi polar disease who was admitted to the hospital on 09/09/2017 for the evaluation of an upset stomach. He reports that in the days prior, he had been noticing some increased difficulties with eating, ass ociated with nausea, vomiting, and diarrhea. He describes that every time he has put food in his mike th, he is able to chew and swallow it, but that very soon after it reaches the stomach he feel unwell with nausea and regurgitation and sometimes vomiting. These symptoms have been intermittently recur rent over the last several months, although he will have prolonged periods of time where he feels wel l. He has been unwell for approximately last 7-10 days with difficulty eating. His inpatient stay h as been uncomplicated. His workup has included laboratory testing, as well as imaging, which has bee n nondiagnostic. He reports no longstanding history of intermittent heartburn complaints. He denies bloody stool, timmy malena, or hematemesis. PAST MEDICAL HISTORY: Includes schizophrenia, history of alcohol abuse, current cannabis use, histor y of heart disease, history of hyperlipidemia. HOME MEDICATIONS: Albuterol, aspirin, atorvastatin, beclomethasone, fluticasone, and olanzapine. ALLERGIES: Erythromycin, sulfa, and anesthetics. SOCIAL HISTORY: He has a history of heavy alcohol use. He reports his last alcohol consumption was approximately 2 weeks ago. He has used marijuana recently. He is a heavy smoker. FAMILY HISTORY: Significant for multiple types of cancer. He denies colon cancer or stomach cancer. REVIEW OF SYSTEMS: A 14-point review of systems was undertaken with the patient and is negative exce pt for those details described in the history of present illness. PHYSICAL EXAMINATION: GENERAL: This is a well-developed male in no apparent distress. HEENT: His pupils are equal, round, reactive to light accommodation. Sclerae are nonicteric. His oropharynx is clear. NECK: Supple without lymphadenopathy. HEART: Regular, without murmurs. ABDOMEN: Soft, n ontender, with normoactive bowel sounds. EXTREMITIES: Free of cyanosis, clubbing, and edema. NEURO LOGIC: Grossly nonfocal. SKIN: Warm and dry. His joints show no arthritis. PSYCHIATRIC: Reveals normal mood and affect. LABORATORY TESTING: Shows a white count of 4.3, hemoglobin of 12.3, hematocrit of 35.7, platelet cou nt of 175. Sodium of 145, potassium of 4.0, chloride of 109, bicarbonate of 26, BUN of 3, creatinine of 0.7. On admission, lipase was 1868, has fallen to 238. CT scan on admission showed an active inflammatory process in the pelvis with an uncertain etiology w ith only short portions of the normal filled gas filled appendix could be resolved. There was one di verticulum without diverticulitis. Pancreas appeared normal. Gallbladder appeared normal. IMPRESSION AND RECOMMENDATIONS: The patient has been unable to tolerate p.o. intake for approximatel y 1 week. He reports prominent nausea with emesis and regurgitation. The etiology for symptoms is u ncertain. Perhaps he is having consequences of medication side effects or recent medication disconti nuation. Chronic cannabis use can lead to abdominal discomfort as well. While there was an elevated lipase on his admission, this resolved quickly, and there was no imaging documentation of pancreatit is. Differential could also include Helicobacter pylori infection, peptic disease, reflux, etc. At this point, I recommended that he undergo upper endoscopy to resolve peptic disease. Given his under lying inhaler use and lung disease, as well as heart disease and schizophrenia, he will be at increas ed risk of conscious sedation. Therefore, we will ask Anesthesia to help us with his sedation. /[id number]/MODL
[2017-09-12] MEDS: OLANZapine 10 MG TAB PO SCH (21:08)
[2017-09-12] MEDS: ATORVASTATIN CALCIUM 40 MG TAB PO SCH (21:09)
[2017-09-13] MEDS: D5W 1/2 NS W/ 20 KCl/L 1,000 ML IV SCH (03:09)
[2017-09-13 07:45] VITALS: BP 110/66
[2017-09-13] MEDS: ASPIRIN EC 81 MG TAB PO SCH (07:59)
[2017-09-13] MEDS: SUCRALFATE 1 GM/10 ML UDCUP PO SCH (07:59)
[2017-09-13] MEDS: NICOTINE 21 MG/24 HR PATCH TD SCH (07:59)
[2017-09-13] MEDS: FLUTICASONE/SALMETER 250/50MCG DISKUS IH SCH (08:11)
[2017-09-13] MEDS: BECLOMETHASONE QVAR 40 REDIHALER 120 INH/10.6 GM MDI IH SCH (08:12)
--- NOTE | 2017-09-13 11:04 | ASMTCMCOM ---
CM Note CM Note Notes: Pt. d/c'ed independently today per RN. Date Signed: 09/13/2017 11:03 AM Electronically Signed By:Janet Deleon LCSW
--- NOTE | 2017-09-13 11:05 | ASMTLACE ---
ANNITA Length of stay for Answers: 4-6 days current admission Acuity / Level of Answers: Yes Care: Did the patient have an inpatient admission? Comorbidities - select Answers: Chronic pulmonary disease all that apply Coronary Artery Disease Other Notes: Hyperlipidemia # of Emergency department Answers: 3-4 visits in the last 6 months Social determinants Answers: History of substance abuse (ETOH, street drugs, prescription drugs, etc.) Mental health diagnosis (anxiety, depression, pers onality disorders, etc.) Score: 21 Date Signed: 09/13/2017 11:04 AM Electronically Signed By:Janet Deleon LCSW
--- NOTE | 2017-09-13 15:39 | GDS ---
[f rep st] DISCHARGE SUMMARY DISCHARGE DIAGNOSES: 1. Gastritis. 2. Nausea and vomiting. PHYSICAL EXAM: GENERAL: The patient is alert. VITAL SIGNS: Afebrile at 36.4, pulse 55, respirator y rate is 12, blood pressure is 110/66. He is saturating 97% on room air. I have seen and evaluated the patient on the day of discharge. HOSPITAL COURSE: The patient is a 47-year-old male with a history of bipolar disorder and schizophre jocelyn, who presented to the emergency room with complaints of nausea, vomiting, and diarrhea. He was e valuated and diagnosed with: 1. Abdominal pain of unclear etiology. During this hospitalization, he was treated with supportive management. He did receive a consultation from Gastroenterology. An EGD was performed, noting mild gastritis. The patient's nausea and vomiting have resolved. He is being treated with Carafate for h is gastritis, and he will continue this in the outpatient setting. Prescription has been provided fo r him. 2. Cannabis use. Cessation has been recommended. 3. Hypotension. This has resolved. 4. Elevated lipase. This has returned to normal limits. 5. History of coronary artery disease, as well as COPD and tobacco abuse. These all appear to be st able prior to disposition. DISPOSITION: The patient will be discharged home independently. He has been instructed to eat small meals and to continue his Carafate as previously prescribed. DISCHARGE MEDICATIONS: Please refer to EMR form. I have written a prescription for Carafate at the time of disposition. FOLLOWUP: Will be with his primary care physician, Dr. Mitch Marie. I spent greater than 35 minute s in the care, coordination, and management of this patient's disposition. /[id number]/MODL
== END 2017-09-13 10:52 | disposition home or self-care (01) | DRG 251 ==
LOC: CED 16:04 → CEDHOLD 17:35 → F3E 19:12 → OBSVTOIN 20:18
PROVIDERS: ADMIT Family Medicine; ATTEND Internal Medicine
PROC: 0DB98ZX Excision of Duodenum, Via Natural or Artificial Opening Endoscopic, Diagnostic (ICD-10-PCS; principal; 2017-09-12 15:00)
PROC: 0DB68ZX Excision of Stomach, Via Natural or Artificial Opening Endoscopic, Diagnostic (ICD-10-PCS; principal; 2017-09-12 15:00)
DX: R10.31 Right lower quadrant pain (principal); K29.50 Unspecified chronic gastritis without bleeding; R11.2 Nausea with vomiting, unspecified; R74.8 Abnormal levels of other serum enzymes; I95.9 Hypotension, unspecified; E87.6 Hypokalemia; F12.20 Cannabis dependence, uncomplicated; F10.10 Alcohol abuse, uncomplicated; F20.9 Schizophrenia, unspecified; F17.210 Nicotine dependence, cigarettes, uncomplicated; F31.9 Bipolar disorder, unspecified; F60.2 Antisocial personality disorder; J44.9 Chronic obstructive pulmonary disease, unspecified; I25.2 Old myocardial infarction; E78.5 Hyperlipidemia, unspecified; R73.03 Prediabetes; Z95.5 Presence of coronary angioplasty implant and graft; Z88.2 Allergy status to sulfonamides
CPT/HCPCS: 74177-PO; 80048-PO; 80076-PO; 81003-PO; 81015-PO; 83690-PO; 85025-PO; 96374; G0378; J1885; J2250; J2405; J2704; Q9967

== ENCOUNTER 2018-07-03 14:14 | Emergency (ER) | payer MEDICAID ==
[2018-07-03] MEDS ORDERED: PROMETHAZINE HCL 25 MG/ML INJ IVP ONE ×2 (14:28→14:44)
[2018-07-03] MEDS ORDERED: ONDANSETRON 4 MG/2 ML VIAL IVP ONE (14:28)
[2018-07-03] MEDS ORDERED: NS 500 ML IV ONE (14:28)
[2018-07-03] MEDS ORDERED: FAMOTIDINE 20 MG in NS 100 ML IV ONE (14:28)
--- NOTE | 2018-07-03 14:33 | EDPHY ---
H & P Smoking Status: Heavy smoker <Nicole Alvarenga - Last Filed: 07/03/18 14:45> <Zack Childress - Last Filed: 07/03/18 17:40> Time Seen by Provider: 07/03/18 14:24 HPI/ROS: HPI Nausea, vomiting, diarrhea. Chest pain. 48-year-old male by private vehicle. The patient has a history of coronary artery disease. He has a history of bipolar disorder and schizophrenia as well. He reports that since yesterday morning he has had watery diarrhea with associated mid and lower abdominal discomfort. He reports several episodes at least of profuse watery diarrhea. No bloody or melenic stool. He reports that he ate 1 sandwich yesterday afternoon. He reports that he felt somewhat better but then yesterday evening going into the night his diarrhea returned, he then developed nausea with vomiting this morning and reports multiple episodes of nonbilious nonbloody vomiting. He also reports a stabbing like chest pain which has been intermittent in nature left anterior chest and sometimes on the right side. No radiation of the pain. Pain described by the patient as a sharp poking like pain. He denies any chest pain currently on my evaluation. ROS: Constitutional: No fever, no chills. No weakness. Eyes: No discharge. No changes in vision. ENT: No sore throat. No nasal congestion or rhinorrhea. Respiratory: No cough. No shortness of breath. Cardiac: As above, no palpitations. Gastrointestinal: As above. Genitourinary: No hematuria. No dysuria or increased frequency with urination. Musculoskeletal: No back pain. No neck pain. No myalgias or arthralgias. Skin: No rashes. Neurological: No headache. No focal weakness or altered sensation. Past medical history: Schizophrenia. Bipolar disorder. Coronary artery disease, status post stent placement. COPD, hyperlipidemia, alcohol abuse, cannabis abuse. Social history: Heavy smoker both marijuana and tobacco. Alcohol abuse. Physical Exam: General Appearance: Alert, he appears comfortable at this time, no distress. This patient is responding to questions appropriately and in full sentences. This patient appears well-hydrated and well-nourished. Eyes: Pupils equal and round no pallor or injection. No lid edema, erythema or injection. Respiratory: There are no retractions, lungs are clear to auscultation with good air movement bilaterally. Cardiovascular: Regular rate and rhythm. No murmur. Gastrointestinal: Abdomen is soft and nontender, no masses, bowel sounds normal. No focal tenderness at McBurney's point. No Lin sign. Neurological: Motor sensory function is grossly intact. Cranial nerves are normal. Gait is normal. Skin: Warm and dry, no rashes. Musculoskeletal: Neck is supple and nontender. Extremities are symmetrical. All joints range without pain or impingement. Psychiatric: No agitation. No depression. Database: EKG: EKG time is 2:29 p.m.; EKG shows a narrow complex normal sinus rhythm with a ventricular rate of 53. QS waves noted in the anterior precordial leads. The NE , QRS, QT intervals are within normal limits. There are no ST-T wave changes indicative of ischemic or injury pattern. This EKG was compared to a prior EKG from 09/07/2017. There are no significant changes. No evidence of right heart strain. Interpreted by me. Imaging: Procedures: Emergency department course: Triage vital signs reviewed and are unremarkable. IV was placed. He was placed on a compliance monitor. He will be started on IV normal saline with 500 cc to be given over the next hour. For nausea and vomiting he was initially given 20 mg of IV Pepcid, 4 mg of IV Zofran and 6.25 mg of IV Phenergan. EKG obtained and reviewed by myself as noted above. 3:00 p.m., the patient's workup is just getting started at this time. Care turned over to Dr. Zack Childress. Differential Diagnosis: The differential diagnosis on this patient includes but is not limited to food borne illness, viral gastroenteritis. Cholecystitis, pancreatitis, appendicitis , other surgical etiology, acute coronary syndrome, pulmonary embolism unlikely. This represents a partial list of diagnoses considered. These considerations are based on history, physical exam, past history, reassessment and diagnostic testing. (Nicole Alvarenga) Constitutional: Initial Vital Signs Temperature (C) 36.6 C 07/03/18 14:31 Heart Rate 77 07/03/18 14:31 Respiratory Rate 14 07/03/18 14:31 Blood Pressure 106/64 07/03/18 14:31 O2 Sat (%) 95 07/03/18 14:31 O2 Delivery Mode Room Air Allergies/Adverse Reactions: erythromycin base [Erythromycin Base] Allergy (Verified 07/03/18 14:24) Pt reports "freaking out" Sulfa (Sulfonamide Antibiotics) Allergy (Verified 07/03/18 14:24) Pt reports rash ANESTHETICS Allergy (Uncoded 09/09/17 16:16) Pt unsure of reaction Home Medications: Medication Instructions Recorded Aspirin EC [Aspirin EC 81 mg (*)] 81 mg PO DAILY 09/09/17 Atorvastatin Calcium [Lipitor 40 80 mg PO HS 09/09/17 mg (*)] OLANZapine [Zyprexa] 10 mg PO HS 09/09/17 Cogentin 07/03/18 Gabapentin 07/03/18 Nitroglycerin 07/03/18 Medical Decision Making <Nicole Alvarenga - Last Filed: 07/03/18 14:45> - Diagnostics Imaging: I viewed and interpreted images myself <Zack Childress - Last Filed: 07/03/18 17:40> - Diagnostics EKG Interpretation: Repeat EKG performed at 1704 indication recurrent chest but treated with nitroglycerin evaluate for interval change sinus rhythm at 47 intervals: Normal throughout [place]: Normal throughout Overall assessment sinus bradycardia with anterior Q-waves similar J-point elevation anterior leads with new onset of T-wave inversion in lead V5 compared to 1st EKG -appearance of slight interval change in lateral leads cannot rule out ischemia. (Zack Childress) Imaging Results: Imaging Impressions Chest X-Ray 07/03/18 14:45 Impression: Stable negative portable chest. ED Course/Re-evaluation: I reviewed this patient's chart after sign-out from Dr. Alvarenga this patient complained of a feeling of a lump down low his throat/high in his chest when he swallows. He is treated with Maalox for this with some improvement. However I spoke to the patient shortly after 1600 regarding his initial series lab tests and chest x-ray he relates that he is having ongoing intermittent sharp chest pain now radiating somewhat to his left arm. He describes this as a burning kind of pain in he admits he has had this intermittently over the past week or so typically at rest. He has had some GERD symptoms but I am also concerned about potential angina as he describes the pain he had with an AZ a few years ago as feeling like burning chest pain radiating to his left arm. The time of my interview he reported that his chest pain and come back and was [id number] intensity. Vital signs are stable at that time with clear lungs cardiac exam-regular rate and rhythm no murmur gallop or rub. Neuro: GCS 15 with no focal deficits. Psychiatric: Logical thought content and cooperative pleasant affect at this time. No pressured speech. Integumentary: No diaphoresis or pallor. Given recurrence of his chest pain that he reports similar to his angina, ordered SL nitroglycerin, however the patient's systolic pressure is 98. Given his low blood pressure opted for 0.5 in nitropaste instead for lower dose of nitro. Patient also has mild bradycardia-high 40s low 50s. He states that at baseline he tends to be mildly hypotensive typically around 100 systolic. Pt. requests [facility] for his transfer since his exercise instruct, Dr. Beck is located at [facility], and patient's cardiac cath was at [facility]. Discussion: Patient presents with intermittent chest pains in the setting of gastroenteritis that are concerning for potential unstable angina with history of cardiac stent and AZ who is still smoking a 3rd of a pack cigarettes a day. 1st troponin is normal here but he still having intermittent chest pains. Appreciate no significant acute changes EKG when compared to prior EKG. His GI symptoms have been controlled with antiemetics. Despite Maalox and Pepcid he still had ongoing burning discomfort in his chest that felt the patient like his angina. At 4:42 p.m. I discussed the case with Dr. Oneill-hospitalist at [facility] accepts the patient for transfer Repeat EKG is slightly different than initial EKG after nitroglycerin raise again the concern for potential angina as cause for his chest pain. Dr. Oneill is aware of my concern for potential unstable angina as the source of this patient's intermittent chest pains. The patient's chest pain did resolve with nitroglycerin paste. At 5:15 p.m. The patient is chest pain-free and stable hemodynamically. Repeat troponin approximately 3 hr after the initial troponin remains normal. CBC was also normal comp metabolic panel normal exception of a slightly low potassium 3.2. on i-STAT his potassium level is 3.3. (Zack Childress) - Data Points Laboratory Results: 07/03/18 07/03/18 07/03/18 17:13 15:40 15:11 POC Sodium POC Potassium 3.3 mEq/L mEq/L (3.3-5.0) POC Chloride POC Total CO2 POC BUN POC Creatinine POC Glucose POC Calcium POC Total Bilirubin POC AST POC ALT POC Alk Phosphatase POC Troponin I 0.00 ng/mL ng/mL 0.01 ng/mL ng/mL (0.00-0.08) (0.00-0.08) POC Total Protein POC Albumin 07/03/18 15:09 POC Sodium 142 mEq/L mEq/L (135-145) POC Potassium 3.2 mEq/L L mEq/L (3.3-5.0) POC Chloride 110.0 mEq/L mEq/L (97-110) POC Total CO2 22 mEq/L mEq/L (22-31) POC BUN 7 mg/dL mg/dL (7-23) POC Creatinine 0.9 mg/dL mg/dL (0.7-1.3) POC Glucose 83 mg/dL mg/dL (70-100) POC Calcium 9.1 mg/dL mg/dL (8.5-10.4) POC Total Bilirubin 1.0 mg/dL mg/dL (0.1-1.4) POC AST 24 IU/L IU/L (17-59) POC ALT 17 IU/L L IU/L (21-72) POC Alk Phosphatase 98 IU/L IU/L (38-126) POC Troponin I POC Total Protein 6.8 g/dL g/dL (6.3-8.2) POC Albumin 3.9 g/dL g/dL (3.5-5.0) Medications Given: Discontinued Medications Al Hydroxide/Mg Hydroxide (Maalox Susp) 30 ml PO EDNOW ONE Stop: 07/03/18 15:00 Last Admin: 07/03/18 15:05 Dose: 30 ml Aspirin (Aspirin) 324 mg PO EDNOW ONE Stop: 07/03/18 14:45 Last Admin: 07/03/18 15:22 Dose: 324 mg Sodium Chloride (Ns) 500 mls @ 1,000 mls/hr IV EDNOW ONE PRN Reason: Protocol Stop: 07/03/18 14:57 Last Admin: 07/03/18 14:56 Dose: 500 mls Famotidine 20 mg/ Sodium (Chloride) 102 mls @ 408 mls/hr IV EDNOW ONE Stop: 07/03/18 14:42 Last Admin: 07/03/18 14:57 Dose: 102 mls Sodium Chloride (Ns) 1,000 mls @ 0 mls/hr IV ONCE ONE; Wide Open PRN Reason: Protocol Stop: 07/03/18 15:32 Last Admin: 07/03/18 15:44 Dose: 1,000 mls Sodium Chloride (Ns) 1,000 mls @ 0 mls/hr IV ONCE ONE PRN Reason: Wide Open Stop: 07/03/18 16:41 Last Admin: 07/03/18 16:41 Dose: 1,000 mls Nitroglycerin (Nitro-Bid 2%) 0.5 inch TP EDNOW ONE Stop: 07/03/18 16:33 Last Admin: 07/03/18 16:39 Dose: 0.5 inch Ondansetron HCl (Zofran) 4 mg IVP EDNOW ONE Stop: 07/03/18 14:29 Last Admin: 07/03/18 14:54 Dose: 4 mg Promethazine HCl (Phenergan) 6.25 mg IVP EDNOW ONE Stop: 07/03/18 14:45 Last Admin: 07/03/18 14:54 Dose: 6.25 mg Point of Care Test Results: CBC CBC Collection Date 07/03/18 CBC Collection Time 15:10 WBC 5.49 RBC 4.42 HGB 14.1 HCT 40.3 PLT 222 Neut # 3.78 Neut 68.9 LYMPH # 1.22 LYMPH 22.2 MCV 91.2 Chemistry 07/03/18 07/03/18 07/03/18 17:13 15:40 15:11 POC Sodium POC Potassium 3.3 mEq/L mEq/L (3.3-5.0) POC Chloride POC Total CO2 POC BUN POC Creatinine POC Glucose POC Calcium POC Total Bilirubin POC AST POC ALT POC Alk Phosphatase POC Troponin I 0.00 ng/mL ng/mL 0.01 ng/mL ng/mL (0.00-0.08) (0.00-0.08) POC Total Protein POC Albumin 07/03/18 15:09 POC Sodium 142 mEq/L mEq/L (135-145) POC Potassium 3.2 mEq/L L mEq/L (3.3-5.0) POC Chloride 110.0 mEq/L mEq/L (97-110) POC Total CO2 22 mEq/L mEq/L (22-31) POC BUN 7 mg/dL mg/dL (7-23) POC Creatinine 0.9 mg/dL mg/dL (0.7-1.3) POC Glucose 83 mg/dL mg/dL (70-100) POC Calcium 9.1 mg/dL mg/dL (8.5-10.4) POC Total Bilirubin 1.0 mg/dL mg/dL (0.1-1.4) POC AST 24 IU/L IU/L (17-59) POC ALT 17 IU/L L IU/L (21-72) POC Alk Phosphatase 98 IU/L IU/L (38-126) POC Troponin I POC Total Protein 6.8 g/dL g/dL (6.3-8.2) POC Albumin 3.9 g/dL g/dL (3.5-5.0) Departure <Nicole Alvarenga B - Last Filed: 07/03/18 14:45> <Zack Childress - Last Filed: 07/03/18 17:40> - Departure Disposition: Acute Care Hospital Not [facility] Clinical Impression: Vomiting and diarrhea, Acute chest pain, Past history of myocardial infarction Condition: Fair Referrals: MONI FINN [Other] - As per Instructions
[2018-07-03] MEDS ORDERED: ASPIRIN 81 MG CHEWABLE TAB ONE (14:41)
[2018-07-03] MEDS ORDERED: ASPIRIN 81 MG CHEWABLE TAB PO ONE (14:44)
[2018-07-03] MEDS ORDERED: MAG HYDROX/AL HYDROX/SIMETH 30 ML UDCUP PO ONE (14:59)
[2018-07-03] MEDS ORDERED: NS 1,000 ML IV ONE ×2 (15:31→16:40)
[2018-07-03] MEDS ORDERED: NITROGLYCERIN 0.4 MG BTL SL PRN (16:22)
[2018-07-03] MEDS ORDERED: NITROGLYCERIN 0.4 MG BTL SL ONE (16:23)
[2018-07-03 16:28] VITALS: BP 98/49
[2018-07-03] MEDS ORDERED: NITROGLYCERIN 2% 1 GM PACKET ONE (16:31)
[2018-07-03] MEDS ORDERED: NITROGLYCERIN 2% 1 GM PACKET TP ONE (16:32)
--- NOTE | 2018-07-05 22:58 | CPEKG ---
Test Reason : OPEN Blood Pressure : / mmHG Vent. Rate : 053 BPM Atrial Rate : 054 BPM P-R Int : 133 ms QRS Dur : 083 ms QT Int : 433 ms P-R-T Axes : 068 093 072 degrees QTc Int : 407 ms Sinus rhythm Probable left atrial enlargement Borderline right axis deviation Low voltage, extremity leads Anteroseptal infarct, old Confirmed by Nicole Alvarenga ([id number]) on 07/05/2018 10:58:25 PM Referred By: PHYSICIAN ED Confirmed By:Nicole Alvarenga
== END 2018-07-03 18:17 | disposition short-term general hospital (02) ==
LOC: CED 14:14
DX: R07.9 Chest pain, unspecified (principal); R11.10 Vomiting, unspecified; R19.7 Diarrhea, unspecified; I25.10 Atherosclerotic heart disease of native coronary artery without angina pectoris; I25.2 Old myocardial infarction
CPT/HCPCS: 71045-PO; 80053-ER; 84132-PO; 84484-ER; 96361-ER; 96365; 96375-ER; J2405; J2550